=== PATIENT | female | born 1960 | race Caucasian/White ===

== ENCOUNTER → 2021-07-19 13:02 | Outpatient (POV) | payer MEDICARE, OTHER, SELFPAY ==
[2021-07-19 13:25] VITALS: BP 144/78; PULSE 98; RESP 18; TEMP 36.3; O2SAT 98; BMI 36.1
--- NOTE | 2021-07-19 15:11 | HMH.PMCON ---
Assessment and Plan (1) Chronic neck pain Status: Acute Category: Medical Code(s): M54.2 - Cervicalgia; G89.29 - Other chronic pain (2) Right ankle pain Status: Acute Category: Medical Code(s): M25.571 - Pain in right ankle and joints of right foot - Assessment and plan all Dx Assessment and Plan for all problems:: Patient is a pleasant 61-year-old female who presents today with chronic neck pain and status post right ankle replacement. In regards to her neck pain, she says that she has had this for several years now. Denies any precipitating factors. She says that her neck pain radiates to bilateral upper extremities. She was seeing Dr. Wall with [facility] (formerly [facility]3] in [place]. He was prescribing her gabapentin 600 mg 3 times a day and Percocet 10 mg 3 times a day. However, Dr. Wall told the patient that he cannot continue prescribing the Percocet and lieu of possible addiction. He started tapering the patient down to Percocet 10 mg twice a day and completely stopped prescribing the medication. Her last Percocet prescription was in January 2021. Then in January, patient was in [place] for [place], she broke her ankle and needed right ankle surgery. She had to stay in [place] for about 4 months for postop follow-ups and rehab. She has been staying now in [place]. However, she says that she has developed some infection in her right ankle. She was taking antibiotics for it but has stopped taking it. She now has a follow-up with orthopedics here in [place] to see what the next plans are for her right ankle. Patient is here today because she wants us to continue her Percocet prescription. I have discussed with the patient that we cannot continue her Percocet because our clinic focuses more on interventional pain management such as injective therapy, ablation, spinal cord stimulation therapy and intrathecal pain pump therapy. Patient says that her pain is stable with Percocet. She has been taking this medication for years. I provided the patient information on the list of other pain doctors who may possibly continue her medication. I cannot guarantee with the patient that these doctors will continue them. We will follow-up with this patient as needed. If the patient ever wants to come back we can certainly try her on cervical epidural steroid injection and spinal cord stimulation therapy. Patient has been instructed to contact the clinic with any concerns before the next appointment. Dr. Garibay has reviewed this note and agrees with this plan of care. This note was dictated using voice recognition software and make contain errors or omissions. HPI - Data of Consult Patient: new to practice Requesting Physician: ELIO Villaseñor - Consult Narrative Reason for consult: Neck pain, right ankle pain History of present illness: Ms. Ferreira is a 61 year old female who presents today as a new patient. Patient is referred by Dr. Gay. Thank you for the referral CC: ELIO Villaseñor [facility] History I have reviewed the patient's past medical history: Yes Medical History: Reports:: Hyperlipidemia, Hypertension, MRSA Denies:: Cancer, Diabetes Mellitus Type 1, Diabetes Mellitus Type 2 *Have you ever received a pneumonia vaccine?: Yes *Have you received a flu vaccine this season?: Yes Other Medical History: Reports: Anemia Other Surgeries: Yes: Colonoscopy, EGD Amputation: No Fractures: Yes (R ANKLE) - *Social History Smoking Status: Never smoker Alcohol Intake: never *Occupational Status:: retired Housing: house *Travel in the last 8 weeks: None Family Hx:: No significant family history Review of Systems - Review of Systems Review of Systems: General: No recent weight changes, no fever, no sleep disturbances Respiratory: No cough, no shortness of air, no recurring pulmonary infections Cardiovascular/peripheral vascular: No chest pain, no palpitations, no edema, no shortness of breath Gastrointestinal: No new onset incontinence
== END ==
PROVIDERS: Visit Provider Student in an Organized Health Care Education/Training Program
DX: M54.2 Cervicalgia (principal); G89.29 Other chronic pain; M25.571 Pain in right ankle and joints of right foot
CPT/HCPCS: 99202; G0463

== ENCOUNTER 2021-07-24 14:15 | Emergency (ER) | payer MEDICARE, OTHER, SELFPAY ==
[2021-07-24 14:15] VITALS: BP 151/87; PULSE 104; RESP 21; TEMP 36.9; O2SAT 99; BMI 30.1
--- NOTE | 2021-07-24 14:45 | PC.NURSE ---
PATIENT SENT TO ER PER Bill MERIDA APRN FOR FURTHER EVALUATION. REPORT GIVEN TO Lamberto YOUNG RN BY Bill MERIDA APRN
[2021-07-24 14:46] VITALS: BP 166/101; PULSE 112; RESP 18; O2SAT 95
--- NOTE | 2021-07-24 14:49 | HMH.EDUTC ---
[facility] [place] Disposition Clinical Impression: Ankle problem, Hematoma Cellulitis Qualifiers: Site of cellulitis: extremity Site of cellulitis of extremity: lower extremity Laterality: right Qualified Code(s): L03.115 - Cellulitis of right lower limb Disposition: Home, Self-Care Condition on Discharge: Fair Instructions: DI for Laceration Repair, DI for Wound Infection Additional Instructions: follow up Ortho as scheduled, return here for worse Prescriptions: Doxycycline Monohydrate [Doxycycline Harris 100mg Tab] 100 mg PO BID #20 tab Transmission Status: [facility] Referrals: Arnoldo Gay [Primary Care Provider] - Medical Decision Making - Adriano Inquiry Pt receiving controlled substance: No Adriano was queried for this patient: No Vital Signs: 07/24/21 14:15 07/24/21 14:46 07/24/21 14:55 Temperature 98.5 F 98 F Temperature Source Oral Oral Pulse Rate Pulse Rate [Radial] 112 H 112 H Pulse Rate [Right Brachial] 104 H Respiratory Rate 21 18 17 Blood Pressure Blood Pressure [Right Arm] 151/87 H 166/101 H 166/101 H Blood Pressure Mean [Right Arm] 108 122 122 Blood Pressure Source [Right Arm] Automatic Cuff Blood Pressure Position [Right Arm] Sitting 02 Sat by Pulse Oximetry 99 95 99 Oxygen Delivery Method Room Air 07/24/21 15:16 07/24/21 16:02 Temperature 98 F Temperature Source Pulse Rate 100 H Pulse Rate [Radial] 100 H Pulse Rate [Right Brachial] Respiratory Rate 18 18 Blood Pressure 150/95 H Blood Pressure [Right Arm] 146/90 H Blood Pressure Mean [Right Arm] 108 Blood Pressure Source [Right Arm] Blood Pressure Position [Right Arm] 02 Sat by Pulse Oximetry 95 Oxygen Delivery Method - Lab Data Lab Results 07/24/21 14:50: WBC 7.1, RBC 4.07 L, Hgb 10.2 L, Hct 32.8 L, MCV 80.7 L, MCH 25.2 L, MCHC 31.2 L, RDW 16.7, Plt Count 505 H, MPV 8.3, Neut % (Auto) 70.6, Lymph % (Auto) 20.5, Harris % (Auto) 4.4, Eos % (Auto) 3.2, Baso % (Auto) 1.3, Neut # (Auto) 5.0, Lymph # (Auto) 1.5, Harris # (Auto) 0.3, Eos # (Auto) 0.2, Baso # (Auto) 0.1 07/24/21 14:50: Sodium 141, Potassium 4.1, Chloride 105, Carbon Dioxide 28, Anion Gap 12.1, BUN 12, Creatinine 0.80, Estimated Creat Clear 75, Estimated GFR 72, Est GFR ( Amer) 88, Glucose 112 H, Calcium 10.8 H, Total Bilirubin 0.5, AST 26, ALT 14, Alkaline Phosphatase 125, Total Protein 8.5 H, Albumin 4.6, Globulin 3.9 H, Albumin/Globulin Ratio 1.2 07/24/21 14:50: Lactate 1.1 Result diagrams: 07/24/21 14:50 07/24/21 14:50 Orders (Tests/Meds): ED MEDICATIONS Discontinued Medications Generic Name Dose Route Start Last Admin Trade Name Freq PRN Reason Stop Dose Admin Lidocaine/Epinephrine 20 ml 07/24/21 16:01 07/24/21 16:03 Lidocaine 2% W/Epi 1:100,000 20ml Vial IJ 07/24/21 16:02 20 ml ONCE ONE Administration Sodium Chloride 10 ml 07/24/21 14:53 Sodium Chloride 0.9% 10ml Flush Syringe IV 08/23/21 14:52 NEEDED PRN Maintain IV Site ORDERS Category Date Time Status Blood Culture Stat Micro 07/24/21 14:50 Received Medical Decision Narrative: Due to recently dx and treatment for MRSA in ankle after surgery in Dec and concern for spreading and worsening of infection discussed with patient and recommended transfer to the ED for further work up and evaluation and patient agreed Called ED spoke with Prema and patient was moved to room 7 [facility] [facility] HPI - General Stated complaint: wounds Time Seen by Provider: 07/24/21 14:49 Mode of Arrival: Ambulatory Source of Information: Patient Limitations: No Limitations Description of Symptoms (Recalled from Triage Doc. by RN): PATIENT BROUGHT OVER FROM WOUND CLINIC BY STAFF FOR CONCERN OF A HARD, RAISED, RED, WARM AREA TO OUTTER RIGHT ANKLE X 2 DAYS. THERE IS AN OPEN AREA BELOW THAT HAS RECENTLY BEEN TREATED FOR MRSA AND IS CURRENTLY BEING TREATED AT WOUND CLINIC HEENT Symptoms (Recalled from RN notes): No Resp Symptoms (Recalled
[2021-07-24 14:55] VITALS: BP 166/101; PULSE 112; RESP 17; TEMP 36.6; O2SAT 99; BMI 30.1
--- NOTE | 2021-07-24 14:58 | HMH.EDEXTP ---
ED Disposition Clinical Impression: Ankle problem, Hematoma Cellulitis Qualifiers: Site of cellulitis: extremity Site of cellulitis of extremity: lower extremity Laterality: right Qualified Code(s): L03.115 - Cellulitis of right lower limb Disposition: Home, Self-Care Condition on Discharge: Good Instructions: DI for Laceration Repair, DI for Wound Infection Additional Instructions: follow up Ortho as scheduled, return here for worse Prescriptions: Doxycycline Monohydrate [Doxycycline Montrose 100mg Tab] 100 mg PO BID #20 tab Transmission Status: Pending to [facility] Referrals: Arnoldo Gay [Primary Care Provider] - - Critical Care Critical Care Time: No Attestation: On 07/24/21, the high probability of a clinically significant, sudden or life threatening deterioration of the following system(s) required my full and direct attention, intervention and personal management. The time I documented below is in addition to time spent performing reported procedures but includes the following listed in this critical care notation. Medical Decision Making - Medical Records Medical records reviewed: Yes: I reviewed the patient's medical records. - Adriano Inquiry Pt receiving controlled substance: No Vital Signs: 07/24/21 14:15 07/24/21 14:55 Temperature 98.5 F 98 F Temperature Source Oral Oral Pulse Rate [Radial] 112 H Pulse Rate [Right Brachial] 104 H Respiratory Rate 21 17 Blood Pressure [Right Arm] 151/87 H 166/101 H Blood Pressure Mean [Right Arm] 108 122 Blood Pressure Source [Right Arm] Automatic Cuff Blood Pressure Position [Right Arm] Sitting 02 Sat by Pulse Oximetry 99 99 Oxygen Delivery Method Room Air - Lab Data Lab Results 07/24/21 14:50: WBC 7.1, RBC 4.07 L, Hgb 10.2 L, Hct 32.8 L, MCV 80.7 L, MCH 25.2 L, MCHC 31.2 L, RDW 16.7, Plt Count 505 H, MPV 8.3, Neut % (Auto) 70.6, Lymph % (Auto) 20.5, Montrose % (Auto) 4.4, Eos % (Auto) 3.2, Baso % (Auto) 1.3, Neut # (Auto) 5.0, Lymph # (Auto) 1.5, Mont[place] # (Auto) 0.3, Eos # (Auto) 0.2, Baso # (Auto) 0.1 07/24/21 14:50: Sodium 141, Potassium 4.1, Chloride 105, Carbon Dioxide 28, Anion Gap 12.1, BUN 12, Creatinine 0.80, Estimated Creat Clear 75, Estimated GFR 72, Est GFR ( Amer) 88, Glucose 112 H, Calcium 10.8 H, Total Bilirubin 0.5, AST 26, ALT 14, Alkaline Phosphatase 125, Total Protein 8.5 H, Albumin 4.6, Globulin 3.9 H, Albumin/Globulin Ratio 1.2 07/24/21 14:50: Lactate 1.1 Result diagrams: 07/24/21 14:50 07/24/21 14:50 Orders (Tests/Meds): ED MEDICATIONS Generic Name Dose Route Start Last Admin Trade Name Freq PRN Reason Stop Dose Admin Sodium Chloride 10 ml 07/24/21 14:53 Sodium Chloride 0.9% 10ml Flush Syringe IV 08/23/21 14:52 NEEDED PRN Maintain IV Site ORDERS Category Date Time Status Ankle XR -Right minimum 3 Views [XR ankle RT min 3V] Exams 07/24/21 15:22 Taken Stat Blood Culture Stat Micro 07/24/21 14:50 Received Medical Decision Narrative: rt ankle xray by me no acute abn discussed with pt, has ortho f/u scheduled next week ok with plan to rx abx and f/u and return for worse Extremity Problem HPI - General Stated complaint: wounds Time Seen by Provider: 07/24/21 14:49 Mode of Arrival: Ambulatory Source of Information: Patient Limitations: No Limitations Description of Symptoms (Recalled from ER Triage Doc. by RN): PATIENT BROUGHT OVER FROM WOUND CLINIC BY STAFF FOR CONCERN OF A HARD, RAISED, RED, WARM AREA TO OUTTER RIGHT ANKLE X 2 DAYS. THERE IS AN OPEN AREA BELOW THAT HAS RECENTLY BEEN TREATED FOR MRSA AND IS CURRENTLY BEING TREATED AT WOUND CLINIC - History of Present Illness HPI Narrative: sent by for rt ankle wound eval pt reports new area of red/swollen x few days near chronic wound site h/o rt ankle surgery with chronic wound care for months h/o mrsa finished bactrim several weeks ago MD Complaint: extremity pain, extremity swelling Onset (ago): day(s
[2021-07-24 15:10] LABS: Basophils # 0.1 K/mm3 (0-0.2); Basophils % 1.3 % (0.1-2.0); Chloride 105 mmol/L (98-107); Eosinophils # 0.2 K/mm3 (0.0-0.4); Eosinophils % 3.2 % (0.1-12.0); Hematocrit 32.8 % (37.0-47.0); Hemoglobin 10.2 g/dL (12.2-16.2); Lymphocytes # 1.5 K/mm3 (0.7-4.5); Lymphocytes % 20.5 % (10-50); Mean Corpuscular HGB Conc 31.2 g/dL (31.8-35.4); Mean Corpuscular Hemoglobin 25.2 pg (27.0-31.2); Mean Corpuscular Volume 80.7 fl (81-99); Mean Platelet Volume 8.3 fl (7.4-10.4); Monocytes # 0.3 K/mm3 (0.1-1.0); Monocytes % 4.4 % (1.7-9.3); Neutrophils % 70.6 % (37.0-80.0); Platelet Count 505 K/mm3 (142-424); Potassium 4.1 mmoL/L (3.5-5.1); Red Blood Count 4.07 M/mm3 (4.20-5.40); Red Cell Distribution Width 16.7 % (11.5-17.5); Sodium 141 mmol/L (136-145); White Blood Count 7.1 K/mm3 (4.8-10.8)
[2021-07-24 15:13] LABS: Alanine Aminotransferase 14 U/L (12-78); Albumin Level 4.6 g/dl (3.5-5.0); Albumin/Globulin Ratio 1.2 (1.1-1.8); Alkaline Phosphatase 125 U/L (38-126); Anion Gap 12.1 mEq/L (5-15); Aspartate Amino Transferase 26 U/L (14-36); Bilirubin,Total 0.5 mg/dl (0.2-1.3); Blood Urea Nitrogen 12 mg/dl (7-17); Carbon Dioxide 28 mmol/L (22.0-30.0); Creatinine Clearance Estimated 75 mL/min (50-200); Estimated Glomerular Filt Rate 72 ml/min (>60); GFR (African American) 88 ML/MIN (>60); Globulin 3.9 g/dL (1.3-3.2); Total Protein,Serum 8.5 g/dl (6.3-8.2)
[2021-07-24 15:14] LABS: Calcium 10.8 mg/dl (8.4-10.2); Glucose 112 mg/dl (74-100); Lactic Acid 1.1 mmol/L (0.7-2.1)
[2021-07-24 15:16] VITALS: BP 146/90; PULSE 100; RESP 18; O2SAT 95
--- NOTE | 2021-07-24 15:22 | XR_ITS ---
FINAL REPORT CLINICAL HISTORY: post op wound, pain FINDINGS: AP, oblique, and lateral views of the right ankle were obtained. There is no prior exam for comparison. There are changes from ORIF of the medial and lateral malleoli. The hardware are intact. There is no acute fracture. There is deformity from old fracture. The bones are osteopenic without convincing bony destruction to suggest osteomyelitis. The ankle mortise is intact. There is soft tissue edema greatest laterally. There is convincing soft tissue air. IMPRESSION: Cellulitis without radiographic findings of osteomyelitis. Consider bone scan or CT if indicated. Reviewed, Interpreted and Dictated by Julia Hogan MD Transcribed by Abiodun Marie Authenticated by Julia Hogan MD on 07/24/2021 04:32:41 PM [facility]
[2021-07-24 16:02] VITALS: BP 150/95; PULSE 100; RESP 18; TEMP 36.6; O2SAT 98
== END 2021-07-24 16:04 | disposition home or self-care (01) ==
LOC: UTC 14:43 → ER 14:47
PROVIDERS: Emergency Medicine; Emergency Provider Nurse Practitioner; PCP Family Medicine
DX: L03.115 Cellulitis of right lower limb (principal); Z86.14 Personal history of Methicillin resistant Staphylococcus aureus infection; I10 Essential (primary) hypertension; E78.5 Hyperlipidemia, unspecified; D64.9 Anemia, unspecified; Z79.899 Other long term (current) drug therapy
CPT/HCPCS: 10021; 73610; 80053; 83605; 85025; 87040; 96372; 99284

== ENCOUNTER → 2021-08-10 13:34 | Outpatient (CLI) | payer MEDICARE, OTHER, SELFPAY ==
[2021-08-10 15:02] LABS: Basophils # 0.1 K/mm3 (0-0.2); Basophils % 1.4 % (0.1-2.0); Eosinophils # 0.2 K/mm3 (0.0-0.4); Hematocrit 32.1 % (37.0-47.0); Hemoglobin 9.9 g/dL (12.2-16.2); Lymphocytes # 1.6 K/mm3 (0.7-4.5); Lymphocytes % 31.1 % (10-50); Mean Corpuscular HGB Conc 30.8 g/dL (31.8-35.4); Mean Corpuscular Volume 81.2 fl (81-99); Mean Platelet Volume 9.6 fl (7.4-10.4); Monocytes # 0.3 K/mm3 (0.1-1.0); Monocytes % 6.2 % (1.7-9.3); Neutrophils % 57.2 % (37.0-80.0); Platelet Count 367 K/mm3 (142-424); Red Blood Count 3.95 M/mm3 (4.20-5.40); Red Cell Distribution Width 16.8 % (11.5-17.5); White Blood Count 5.2 K/mm3 (4.8-10.8)
[2021-08-10 15:06] LABS: Alanine Aminotransferase 14 U/L (12-78); Albumin Level 4.2 g/dl (3.5-5.0); Albumin/Globulin Ratio 1.1 (1.1-1.8); Alkaline Phosphatase 123 U/L (38-126); Anion Gap 9.6 mEq/L (5-15); Aspartate Amino Transferase 25 U/L (14-36); Bilirubin,Total 0.1 mg/dl (0.2-1.3); Blood Urea Nitrogen 14 mg/dl (7-17); Calcium 9.9 mg/dl (8.4-10.2); Carbon Dioxide 29 mmol/L (22.0-30.0); Chloride 104 mmol/L (98-107); Estimated Glomerular Filt Rate 72 ml/min (>60); GFR (African American) 88 ML/MIN (>60); Globulin 3.7 g/dL (1.3-3.2); Glucose 93 mg/dl (74-100); Potassium 4.6 mmoL/L (3.5-5.1); Sodium 138 mmol/L (136-145); Total Protein,Serum 7.9 g/dl (6.3-8.2)
[2021-08-10 15:11] LABS: C-Reactive Protein 6.8 mg/L (0-4)
[2021-08-10 15:23] LABS: 25-OH Vitamin D, Total 45.2 ng/mL (30-100)
[2021-08-10 16:32] LABS: Erythrocyte Sedimentation Rate 49 mm/hr (0-30)
== END ==
PROVIDERS: PCP Family Medicine; Visit Provider Orthopaedic Surgery
DX: M86.9 Osteomyelitis, unspecified (principal); L03.90 Cellulitis, unspecified; S91.001A Unspecified open wound, right ankle, initial encounter; E55.9 Vitamin D deficiency, unspecified
CPT/HCPCS: 36415; 80053; 82306; 85025; 85651; 86140; 87070; 87077; 87186; 87205

== ENCOUNTER 2021-08-10 14:00 | Outpatient (RCR) | payer MEDICARE, OTHER, SELFPAY | END 2021-08-10 14:05 | disposition home or self-care (01) | LOC: PT 14:00 | PROVIDERS: PCP Family Medicine | DX: L97.511 Non-pressure chronic ulcer of other part of right foot limited to breakdown of skin (principal) | CPT/HCPCS: 87070; 87077; 87186; 87205; 97163; 97164; 97597; 97760 ==

== ENCOUNTER → 2021-08-16 09:03 | Outpatient (CLI) | payer MEDICARE, OTHER, SELFPAY ==
--- NOTE | 2021-08-16 09:22 | CT_ITS ---
FINAL REPORT CLINICAL HISTORY: ankle pain, pt will be having sx to remove hardware COMPARISON: Plain films dated July 24, 2021 FINDINGS: CT RIGHT ANKLE WITH AND WITHOUT CONTRAST Axial CT images were performed through the right ankle with and without contrast. Coronal and sagittal reformatted images were submitted. This study was performed with techniques to keep radiation doses as low as reasonably achievable (ALARA). Individualized dose reduction techniques using automated exposure control or adjustment of mA and/or kV according to the patient's size were employed. FINDINGS: There are postoperative changes of the distal tibia and fibula with a sideplate and multiple screws. There are chronic fractures of the distal tibia and fibula. There is diffuse osteopenia. There are moderate degenerative changes at the distal tibial fibular joint. There are small calcaneal spurs. There is no abnormal contrast enhancement. IMPRESSION: Postoperative changes securing chronic fractures of the distal tibia and fibula. No abnormal contrast enhancement. Reviewed, Interpreted and Dictated by Freddy Baker III, MD Transcribed by Abiodun Marie Authenticated and [facility]
[2021-08-16 09:33] LABS: Calcium 10.4 mg/dl (8.4-10.2)
[2021-08-16 10:01] LABS: 25-OH Vitamin D, Total 40.6 ng/mL (30-100)
== END ==
PROVIDERS: PCP Family Medicine; Visit Provider Orthopaedic Surgery
DX: E55.9 Vitamin D deficiency, unspecified (principal); M86.9 Osteomyelitis, unspecified; M25.571 Pain in right ankle and joints of right foot
CPT/HCPCS: 36415; 73702; 82306; 82310; C9803; Q9967; U0003; U0005

== ENCOUNTER 2021-08-17 09:39 | Inpatient (IN) | payer MEDICARE, OTHER, SELFPAY ==
[2021-08-14 16:25] VITALS: BMI 36.1
[2021-08-17] VITALS (17 sets, daily range): BP systolic 123–158; BP diastolic 77–96; PULSE 87–106; RESP 14–18; TEMP 36.6–43; O2SAT 95–99; BMI 36.7
[2021-08-17 08:55] LABS: Coronavirus 19, PCR Not Detected (NotDetected); Influenza A, PCR Not Detected (NotDetected); Influenza B, PCR Not Detected (NotDetected)
--- NOTE | 2021-08-17 10:14 | HMH.PHAINT ---
MEDICATION RECONCILIATION COMPLETED ON PATIENT USING EXTERNAL FILL HISTORY FROM PHARMACY AND [facility]AN[facility]ER[facility] REPORT. -ASHLIE HAYDEND
--- NOTE | 2021-08-17 13:08 | HMH.ANESCL ---
[facility] Anesthesia Checklist - Patient Identification Patient Identification: Arm Band - Structural Data Admitted From: Home Planned Operative Procedure/s: Right Foot Hardware Removal Consent for Planned Operative Procedure(s) Verified: Yes Verified Documents: Surgical Consent - NPO Status Verified Time NPO: 00:00 - Chart Verification Results Verified: CBC, BMP - Additional verifications Anesthesia Reactions: No Hx Blood Transfusions: Yes Blood Transfusion Reaction: Yes - Airway Assessment C-Spine Mobility Assessed: Yes TMJ Mobility Assessed: Yes Dentition: Partials - Neurological Assessment Level of Consciousness: Awake, Alert, Appropriate - Anesthesia Plan Anesthesia Risk discussed: Yes ASA Class: II Anesthesia Type: General [facility] History I have reviewed the patient's past medical history: Yes Medical History: Reports:: Hyperlipidemia, Hypertension, MRSA Denies:: Cancer, Diabetes Mellitus Type 1, Diabetes Mellitus Type 2, Internal Pacemaker, Seizures *Have you ever received a pneumonia vaccine?: Yes *Have you received a flu vaccine this season?: Yes Other Medical History: Reports: Anemia, Blood Transfusion Reaction Anesthesia experience/problems:: None Other Surgeries: Yes: Colonoscopy, EGD. No: Pacemaker Amputation: No Fractures: Yes (R ANKLE) - *Social History Last grade of school completed: High school graduate Smoking Status: Never smoker Alcohol Intake: never Substance Use Type: denies use *Occupational Status:: retired Housing: house Household Members: none *Travel in the last 8 weeks: None Family Hx:: No significant family history
--- NOTE | 2021-08-17 13:10 | P.PN_ITS ---
[facility] Anesthesia Record Part I Intake, IV Amount: 1,000 Estimated blood loss (mL): 10 Urine output (mL): 0 Blood Pressure: 142/88 SaO2: 97 Pulse Rate: 104 Respiratory Rate: 14 Temperature: 98.7 F Patient is:: Drowsy Stable to PACU at:: 13:03
--- NOTE | 2021-08-17 13:50 | HMH.PHACONS ---
- Pharmacy Consult Date: 08/17/21 Time: 13:50 Referring provider: DR GOVEA Reason for Consult:: VANCOMYCIN DOSING Allergies and ADEs:: Allergies Allergy/AdvReac Type Severity Reaction Status Date / Time No Known Allergies Allergy Verified 08/10/21 15:15 Home Medications:: Home Medications Medication Instructions Recorded Confirmed Type ALPRAZolam [Alprazolam 2mg Tab] 2 mg PO AM 07/19/21 08/17/21 History Cholecalciferol (Vitamin D3) 1,000 unit PO DAILY 07/19/21 08/14/21 History [Vitamin D3 1,000 Unit Cap] Cyanocobalamin (Vitamin B-12) 5,000 mcg PO DAILY 07/19/21 08/14/21 History [Vitamin B12 5mg Tab] amlodipine 5 mg tablet 5 mg PO DAILY tab 08/10/21 08/14/21 History escitalopram oxalate 10 mg tablet 10 mg PO DAILY tab 08/10/21 08/14/21 History fluticasone propionate 50 1 spray NS DAILY g 08/10/21 08/14/21 History mcg/actuation nasal spray,suspension ALPRAZolam [Alprazolam 2mg Tab] 1 mg PO 1300 08/17/21 08/17/21 History ALPRAZolam [Alprazolam 2mg Tab] 2 mg PO HS 08/17/21 08/17/21 History Oxycodone HCl 5 mg PO Q8HP PRN 08/17/21 08/17/21 History Height: 1.55 m Weight: 86.636 kg Laboratory Results:: Laboratory Results - last 24 hr 08/17/21 08:50: SARS-CoV-2 (PCR) Not detected, Influenza A Untype (PCR) Not detected, Influenza Type B (PCR) Not detected Medical History: Reports:: Hyperlipidemia, Hypertension, MRSA Denies:: Cancer, Diabetes Mellitus Type 1, Diabetes Mellitus Type 2, Internal Pacemaker, Seizures Assessment and Plan - Assessment and plan all Dx Assessment and Plan for all problems:: Pharmacokinetic dosing service Objective: Age: 61 yo Serum creatinine: 1 mg/dL Height: 61.0 Inches Weight (kg): 86.636 Diagnosis: POST-SURGICAL PROPHYLAXIS Assessment: IBW (kg): 47.80 Dosing wt(kg): 86.636 Estimated Creatinine clearance (ml/min): 57.5 CRCL method: Cockcroft and Gault using adjusted body weight Drug selected: Vancomycin Loading dose (mg): Vd (liters): 56.3 (factor used: 0.65 L/kg) Neal (hr-1): 0.052 Half life (hrs): 13.33 CLvanco=?? 2.928 L/hr Recommended dose: 1500 mg Interval: 24 hrs Infusion time (hrs): 2.0 Predicted peak (mcg/mL): 35.5 Predicted trough (mcg/mL): 11.31 Total body weight is being used for vancomycin dosing. Recommendations: Give Vancomycin 1500 mg q 24 hrs with an expected Cpeak of 35.5 mcg/ml and an expected Ctrough of 11.31 mcg/ml AUC 0-24 /GAVIN Data: GAVIN 0.5 mcg/mL:?? AUC/GAVIN:? 1024.6 GAVIN 1.0 mcg/mL:?? AUC/GAVIN:? 512.3 --------- GAVIN 1.5 mcg/mL:?? AUC/GAVIN:? 341.5 GAVIN 2.0 mcg/mL:?? AUC/GAVIN:? 256.1 Thank you for the consult.
--- NOTE | 2021-08-17 13:52 | HMH.OPNOTE ---
Date of procedure: 08/17/21 Pre-op Diagnosis:: Right ankle surgical site infection. Post-op Diagnosis:: same Procedure performed:: 41840: Incision and drainage of complex postoperative infection 59284: Removal of deep implant 15262: Antibiotic cement placement 79516: Wound vacuum-assisted closure placement Surgeon:: Kyle Rollins JR, MD Crosscutter(s):: Farzana Ogden PA-C Anesthesia: GETA Estimated blood loss (mL): 30 Clinical Note:: 51-year-old female underwent open reduction internal fixation right ankle fracture by an outside provider, subsequently developed drainage and was treated for period of time with wound care. She presented to clinic last week, had purulent appearing drainage which I sent for culture, ultimately growing methicillin-resistant staph aureus. Patient with her regarding further management including further wound care and antibiotics versus hardware removal. I counseled her that given that she had persistent infection with hardware in place, that it would be difficult to eradicate the infection while leaving the hardware in place. At the time I offered to admit her last week to expedite work-up and intervention, but she said she could not be admitted last Friday. As such, we plan for right ankle hardware removal, wound vacuum-assisted closure, antibiotic cement placement with subsequent admission to the hospital today. She underwent a CT scan in the interim which demonstrated healed fractures. She is amenable with the plan. We discussed the risk and benefits of surgery. Risks included but were not limited to pain, bleeding, infection, damage to adjacent structures, need for further surgery, wound healing complications, loss of limb, . Patient expressed verbal consent and written consent was obtained for the above procedure. Operative findings:: Hardware was explanted. The fracture sites appeared stable upon direct visualization and were stable to stress fluoroscopic examination. Operative note:: Patient was identified in preoperative holding. Operative site was marked in indelible ink. History, physical, consent were reviewed and updated. Patient was surrendered to the anesthesia team, taken to the operative suite, placed supine on a well-padded operative table. Ipsilateral hip bump was placed as was a nonsterile thigh tourniquet. Anesthesia was induced. The operative extremity was prepped and draped in the usual sterile fashion. The operative team donned sterile gowns and gloves and a timeout was called. All in attendance agreed regarding the patient's identity, procedure, operative site. Weight-based dose of antibiotics was given prior to incision. Elevated the right lower extremity, inflated the tourniquet. I made a medial approach to the ankle along her previous incision, dissected through skin and subcutaneous tissue. I had to dissect more proximally but was able to identify the medial button from the tight rope type device, was able to remove this and send it for pathology. I then identified fluoroscopically and visually the 2 cannulated screws to the medial malleolus which I likewise removed and sent for pathology. Irrigated the wound with Irrisept followed by saline, then injected vancomycin impregnated cement along the screw tracks of the medial malleolus. The medial incision with nylon sutures prior to proceeding laterally so as to not contaminate the medial surgical site with tissue from the grossly infected lateral surgical site. I turned my attention laterally, opened her previous lateral incision, ellipsing devitalized skin proximally. There was a more posterior sinus tract that I did not feel I could ellipse and achieve primary closure. I dissected through skin and subcutaneous tissue, identified the plate and screw construct, removed of the lateral button and remaining suture material followed by all screws in the plate. I took a swab specimen deep which I sent for culture. I
--- NOTE | 2021-08-17 14:10 | XR_ITS ---
FINAL REPORT CLINICAL HISTORY: HARDWARE REMOVED .33 fluoro time FINDINGS: Fluoroscopic guidance was provided for the operating services. A single spot film was provided. 33 seconds of fluoroscopy time was utilized. There has been hardware removal. IMPRESSION: 33 seconds of fluoroscopy time. Reviewed, Interpreted and Dictated by Freddy Baker III, MD Transcribed by Abiodun Marie Authenticated and [facility]
--- NOTE | 2021-08-17 14:42 | SUR.OPER ---
1258 Total hardware removed was 1 plate and 9 screws. All hardware was sent to pathology
--- NOTE | 2021-08-17 15:08 | HMH.PTEV ---
Physical Therapy Evaluation Rehab PT IP Evaluation Start: 08/17/21 13:24 Freq: ONCE Status: Active Protocol: Document 08/17/21 14:58 DEAN (Rec: 08/17/21 15:07 DEAN [id number]) Subjective/History History History Patient is a 61 year old female presenting to outpatient PT with reports of R post-surgical foot/ankle pain secondary to hardware removal. Patient had previously had an ORIF after an ankle fracture that eventually resulted in infection. Patient reports that she lives at home alone with 1 step to enter her house . Previously independent with all ADL's. She currently has a wound vac. Patient set up with XL CAM walker today. MD orders indicate TTWB at this time. Subjective Subjective I'm in a lot of pain. Rehab PT IP Eval Objective Appearance Patient Behavior Appropriate,Cooperative Patient Orientation Person,Place,Birthday Difficulty following instructions none Speech Pattern Clear,Appropriate Ambulation Patient Able to Ambulate No Balance Ability to Arise Unable Sitting Balance Steady, safe Dynamic Sitting Balance Ability Normal Transfers Bed Transfer Ability Minimal x 1 (25% assist) Pain Right Foot Pain Intensity 8 ROM RLE PT ROM Status ABN Abnormal ROM Comment recently out of surgery MMT RLE PT MMT ABN Abnormal MMT Grade NT secondary to orthopedic precautions. Rehab PT IP prob,goals,plan Problems Date of Evaluation: 08/17/21 PT IP Problems Bed Mobility,Transfers,Gait, Balance,Self care,Safety Rehab Potential Rehab Potential Good Equipment Needs Assistive Devices Rolling / Wheeled Walker Plan PT Intervention Plan Bed Mobility,Transfers,Gait, Balance,Self care,Safety, Therapeutic Exercise PT Plan Frequency BID Duration LOS Discharge Goals Bed Transfer Ability Supervision/Stand by Sit to Stand Chair Transfer Ability Supervision/Stand by Ambulation Assistive Device Rolling Walker Ambulation Dist
--- NOTE | 2021-08-17 16:25 | CARE MANAGER ---
CM has worked on trying to set up IV antibiotics and HH r/t infusions and wound vac. this afternoon once discovering patient was being admitted with needs. We are not able to find HH at this time. Will discuss SNF placement options on Friday. We will notify Dr. Rollins of these issues and the need for patient to stay until Friday, which is what he apparently told the patient.
--- NOTE | 2021-08-17 18:03 | HMH.HP ---
*Admission Date: 08/17/21 *Chief complaint: Admitted for orthopedic surgery; infected hardware *History of present illness: Ms. Ferreira is a 61 y.o female with history of ankle fracture after she fell down some stairs and and fractured/dislocated her ankle in January 2021. She had surgery on February 17, [address] [facility] in [place]. She underwent open reduction internal fixation right ankle fracture by an outside provider, subsequently developed drainage and was treated for period of time with wound care. She recent presented to Ortho clinic at [facility] with purulent appearing drainage which was sent for culture, ultimately growing methicillin-resistant staph aureus. Decision made to remove hardware and pursue extended course of IV Abx. She was admtted today for removal of hardware. This afternoon hardware was explanted. The fracture sites appeared stable upon direct visualization and were stable to stress fluoroscopic examination per Ortho documentation. Medicine consulted to assist in co-management of chronic conditions, Abx management, and follow-up plans. On evaluation, she is s/p surgery. Pain prominent. Wound vac in place with sero-sanguinous drainage. Denies any CP, MARTINES, SOA, N/V/D, constipation, or fever. [facility] History I have reviewed the patient's past medical history: Yes Medical History: Reports:: Hyperlipidemia, Hypertension, MRSA Denies:: Cancer, Diabetes Mellitus Type 1, Diabetes Mellitus Type 2, Internal Pacemaker, Seizures *Have you ever received a pneumonia vaccine?: No *Have you received a flu vaccine this season?: Yes Other Medical History: Reports: Anemia, Blood Transfusion Reaction Anesthesia experience/problems:: None Other Surgeries: Yes: Colonoscopy, EGD. No: Pacemaker Amputation: No Fractures: Yes (R ANKLE) - *Social History Last grade of school completed: High school graduate Smoking Status: Never smoker Alcohol Intake: never Substance Use Type: denies use *Occupational Status:: disabled Housing: house Household Members: none *Travel in the last 8 weeks: None Family Hx:: Mental illness Review of Systems - Review of Systems Review of systems:: pertinent systems reviewed and negative unless documented below (14 point review of systems performed, pertinent positives and negatives as per HPI) Meds Home Medications Medication Instructions Recorded Confirmed Type ALPRAZolam [Alprazolam 2mg Tab] 2 mg PO AM 07/19/21 08/17/21 History Cholecalciferol (Vitamin D3) 1,000 unit PO DAILY 07/19/21 08/14/21 History [Vitamin D3 1,000 Unit Cap] Cyanocobalamin (Vitamin B-12) 5,000 mcg PO DAILY 07/19/21 08/14/21 History [Vitamin B12 5mg Tab] amlodipine 5 mg tablet 5 mg PO DAILY tab 08/10/21 08/14/21 History escitalopram oxalate 10 mg tablet 10 mg PO DAILY tab 08/10/21 08/14/21 History fluticasone propionate 50 1 spray NS DAILY g 08/10/21 08/14/21 History mcg/actuation nasal spray,suspension ALPRAZolam [Alprazolam 2mg Tab] 1 mg PO 1300 08/17/21 08/17/21 History ALPRAZolam [Alprazolam 2mg Tab] 2 mg PO HS 08/17/21 08/17/21 History Oxycodone HCl 5 mg PO Q8HP PRN 08/17/21 08/17/21 History Allergies Allergy/AdvReac Type Severity Reaction Status Date / Time No Known Allergies Allergy Verified 08/10/21 15:15 Exam Vital signs and Labs for Last 24 Hours: Temp Pulse Resp BP Pulse Ox 98.5 F 96 H 16 140/96 H 97 08/17/21 13:33 08/17/21 13:33 08/17/21 13:33 08/17/21 13:33 08/17/21 13:33 Laboratory Results - last 24 hr 08/17/21 08:50: SARS-CoV-2 (PCR) Not detected, Influenza A Untype (PCR) Not detected, Influenza Type B (PCR) Not detected I & O for Last 24 hours: Intake & Output 08/14/21 08/15/21 08/16/21 08/17/21 23:59 23:59 23:59 23:59 Intake Total 1000 / 1000 Balance 1000 / 1000 Weight 86.636 kg 88.224 kg - Constitutional no acute distress - *Routine HEENT Exam Head: Present: normocephalic Eye: Present: EOMI, PERRL ENT: Present: mucous membranes moist
--- NOTE | 2021-08-18 03:50 | HMH.ORTHPN ---
Subjective Date: 08/18/21 Time: 03:50 Principal diagnosis: Right surgical site infection with suspected osteomyelitis. Interval history: Status post right ankle debridement, irrigation, hardware removal, antibiotic cement injection, wound vacuum-assisted closure earlier August 18, 2021. She feels well. Pain is tolerable. PN: Obj Ex Vital signs: Temp Pulse Resp BP Pulse Ox 98.4 F 91 H 18 137/81 98 08/17/21 20:00 08/17/21 20:00 08/17/21 20:00 08/17/21 20:00 08/17/21 20:00 - Constitutional no acute distress - Routine HEENT Exam Head: Present: normocephalic, atraumatic Eye: Present: EOMI - Routine Neck Exam Present: supple - Routine Respiratory Exam Absent: accessory muscle use, respiratory distress - Routine Cardiovascular Exam Present: RRR - Detailed Lower Extremity Exam Lower leg: Right normal inspection (Right lower extremity dressing clean, dry, intact. Wound vacuum assisted closure device with good seal, serosanguineous output. Intact EHL, FHL, tibialis anterior, gastroc/soleus. Palpable DP/SP/tibial nerve distribution.) Progress Note: A&P (1) Infected hardware in right leg Status: Acute (2) Essential hypertension Status: Chronic (3) Anxiety Status: Chronic (4) Chronic pain Status: Chronic (5) MRSA (methicillin resistant staph aureus) culture positive Status: Acute (6) Cellulitis Status: Acute Assessment and Plan for All Diagnoses:: 61-year-old female status post right ankle debridement, irrigation, hardware removal, antibiotic cement injection with wound vacuum-assisted closure August 17, 2021. Plan to follow cultures, anticipate MRSA given previous cultures. Plan for PICC line placement, anticipate outpatient antibiotics 15 mg/kg. I discussed this with Dr. Celso Carlisle who agreed to follow-up with her this week. Every 72 hour wound vacuum-assisted closure change. Protected weightbearing in boot. Appreciate medical management per Dr. Almaguer / April. Will follow.
[2021-08-18 04:00] VITALS: BP 141/76; PULSE 89; RESP 18; TEMP 36.4; O2SAT 97
[2021-08-18 05:00] VITALS: BMI 36.7
[2021-08-18 07:52] LABS: Basophils % 0.3 % (0.1-2.0); Eosinophils % 0.1 % (0.1-12.0); Hematocrit 27.5 % (37.0-47.0); Hemoglobin 8.8 g/dL (12.2-16.2); Lymphocytes % 10.2 % (10-50); Mean Corpuscular HGB Conc 31.9 g/dL (31.8-35.4); Mean Corpuscular Hemoglobin 25.8 pg (27.0-31.2); Mean Corpuscular Volume 80.9 fl (81-99); Mean Platelet Volume 9.6 fl (7.4-10.4); Monocytes # 0.4 K/mm3 (0.1-1.0); Monocytes % 4.2 % (1.7-9.3); Neutrophils # 7.9 K/mm3 (1.8-7.8); Neutrophils % 85.1 % (37.0-80.0); Platelet Count 334 K/mm3 (142-424); Red Cell Distribution Width 17.3 % (11.5-17.5); White Blood Count 9.3 K/mm3 (4.8-10.8)
[2021-08-18 07:54] LABS: MANUAL DIFFERENTIAL MANUAL DIFFERENTIAL (MANUAL DIFF)
[2021-08-18 07:55] LABS: Chloride 105 mmol/L (98-107); Potassium 4.5 mmoL/L (3.5-5.1); Sodium 137 mmol/L (136-145)
[2021-08-18 07:57] LABS: Blood Urea Nitrogen 18 mg/dl (7-17); Creatinine Clearance Estimated 80 mL/min (50-200); Estimated Glomerular Filt Rate 63 ml/min (>60); GFR (African American) 77 ML/MIN (>60)
[2021-08-18 07:58] LABS: Alanine Aminotransferase 11 U/L (12-78); Albumin Level 3.8 g/dl (3.5-5.0); Albumin/Globulin Ratio 1.2 (1.1-1.8); Alkaline Phosphatase 99 U/L (38-126); Anion Gap 7.5 mEq/L (5-15); Aspartate Amino Transferase 21 U/L (14-36); Bilirubin,Total 0.4 mg/dl (0.2-1.3); Calcium 9.7 mg/dl (8.4-10.2); Carbon Dioxide 29 mmol/L (22.0-30.0); Globulin 3.2 g/dL (1.3-3.2); Glucose 124 mg/dl (74-100); Magnesium 2.2 mg/dl (1.6-2.3)
--- NOTE | 2021-08-18 08:24 | P.CONPHA_ITS ---
[facility] Pharmacy VTE Monitoring - Patient Demographics Admission date: 08/18/21 Report Date: 08/18/21 Time: 08:24 Allergies/Adverse Reactions: Patient Allergies No Known Allergies Allergy (Verified 08/10/21 15:15) Height: 1.55 m Weight: 88.225 kg Patient Problems: Current Active Problems Cellulitis (Acute) Essential hypertension (Chronic) Infected hardware in right leg (Acute) Anxiety (Chronic) Chronic pain (Chronic) MRSA (methicillin resistant staph aureus) culture positive (Acute) - VTE Risk Labs: VTE Related Lab Results Hgb 8.8 g/dL (12.2-16.2) L 08/18/21 06:55 Hct 27.5 % (37.0-47.0) L 08/18/21 06:55 Plt Count 334 K/mm3 (142-424) 08/18/21 06:55 BUN 18 mg/dl (7-17) H 08/18/21 06:55 Creatinine 0.90 mg/dl (0.52-1.04) 08/18/21 06:55 Estimated Creat Clear 80 mL/min (50-200) 08/18/21 06:55 Clinical Trial Participant: No - Prophylaxis VTE Prophylaxis Ordered?: Yes Types of VTE Prophylaxis: IPCS Knee High (POST OP)
--- NOTE | 2021-08-18 08:28 | P.PN_ITS ---
Internal Medicine - PN: Subj *Date: 08/18/21 *Time: 08:28 Interval history: Patient did well overnight, has some postoperative pain. No other plaints. Does wish to have some more substantial food beside clear liquids. Exam Vital signs and Labs for Last 24 Hours: Temp Pulse Resp BP Pulse Ox 97.6 F 89 18 141/76 H 97 08/18/21 04:00 08/18/21 04:00 08/18/21 04:00 08/18/21 04:00 08/18/21 04:00 Laboratory Results - last 24 hr 08/17/21 08:50: SARS-CoV-2 (PCR) Not detected, Influenza A Untype (PCR) Not detected, Influenza Type B (PCR) Not detected 08/18/21 06:55: WBC 9.3, RBC 3.40 L, Hgb 8.8 L, Hct 27.5 L, MCV 80.9 L, MCH 25.8 L, MCHC 31.9, RDW 17.3, Plt Count 334, MPV 9.6, Neut % (Auto) 85.1 H, Lymph % (Auto) 10.2, [place] % (Auto) 4.2, Eos % (Auto) 0.1, Baso % (Auto) 0.3, Neut # (Auto) 7.9 H, Lymph # (Auto) 1.0, [place] # (Auto) 0.4, Eos # (Auto) 0.0, Baso # (Auto) 0.0 08/18/21 06:55: Sodium 137, Potassium 4.5, Chloride 105, Carbon Dioxide 29, Anion Gap 7.5, BUN 18 H, Creatinine 0.90, Estimated Creat Clear 80, Estimated GFR 63, Est GFR ( Amer) 77, Glucose 124 H, Calcium 9.7, Magnesium 2.2, Total Bilirubin 0.4, AST 21, ALT 11 L, Alkaline Phosphatase 99, Total Protein 7.0, Albumin 3.8, Globulin 3.2, Albumin/Globulin Ratio 1.2 I & O for Last 24 hours: Intake & Output 08/15/21 08/16/21 08/17/21 08/18/21 11:59 11:59 11:59 11:59 Intake Total 1449 / 1449 Output Total 400 / 400 Balance 1049 / 1049 Weight 191 lb 194 lb 8.045 oz Microbiology Reports for the Last 24 Hours: Microbiology 08/17/21 12:15 Ankle,Right Gram Stain - Final 08/17/21 12:15 Ankle,Right Wound Culture - Preliminary 08/17/21 12:10 Ankle,Right Gram Stain - Final Narrative: Patient is awake, alert, pleasant. Oriented x3. Orthopedic progress notes reviewed. Lungs clear anteriorly, heart rate regular, abdomen soft. No distal edema. Right ankle wrapped in surgical bandage which is clean and dry and intact. Assessment and Plan (1) Infected hardware in right leg Status: Acute Category: Medical Code(s): T84.7XXA - Infection and inf lammatory reaction due to other internal orthopedic prosthetic devices, implants and grafts, initial encounter (2) Essential hypertension Status: Chronic Category: Medical Code(s): I10 - Essential (primary) hypertension (3) Anxiety Status: Chronic Category: Medical Code(s): F41.9 - Anxiety disorder, unspecified (4) Chronic pain Status: Chronic Category: Medical Code(s): G89.29 - Other chronic pain (5) MRSA (methicillin resistant staph aureus) culture positive Status: Acute Category: Medical Code(s): Z22.322 - Carrier or suspected carrier of Methicillin resistant Staphylococcus aureus (6) Cellulitis Status: Acute Qualifiers: Site of cellulitis: extremity Site of cellulitis of extremity: lower extremity Laterality: right Qualified Code(s): L03.115 - Cellulitis of right lower limb Category: Medical Code(s): L03.90 - Cellulitis, unspecified - Assessment and plan all Dx Assessment and Plan for all problems:: Continue vancomycin. Try to obtain PICC line access. Advance diet. Watch renal function tomorrow.
[2021-08-18 08:41] VITALS: BP 127/77; PULSE 79; RESP 17; TEMP 36.4; O2SAT 99
--- NOTE | 2021-08-18 10:57 | XR_ITS ---
PROCEDURE INFORMATION: Exam: XR Chest Exam date and time: 08/18/2021 11:09 AM Age: 61 years old Clinical indication: Device placement; Picc; Additional info: Picc line placement TECHNIQUE: Imaging protocol: Radiologic exam of the chest. Views: 1 view. COMPARISON: No relevant prior studies available. FINDINGS: Tubes, catheters and devices: The PICC line is superimposed upon the bony thorax limiting interpretation. Breast shadows also superimposed upon this region. The right heart border is obscured. The tip of the PICC line is approximately at the level of the mid superior vena cava. Lungs: Unremarkable. No consolidation. Pleural spaces: Unremarkable. No pleural effusion. No pneumothorax. Heart/Mediastinum: Unremarkable. No cardiomegaly. Bones/joints: Unremarkable. IMPRESSION: Suboptimal visualization of the PICC line. Tip approximately at the level of the mid superior vena cava.
[2021-08-18 14:53] LABS: Hypochromasia 1+; Lymphocytes % 13 % (10-50); Monocytes % 11 % (2-9); Neutrophils % 76 % (42-76); Platelet Estimate Normal; Total Cells Counted 100
[2021-08-18 14:54] LABS: Anisocytosis 1+; Stomatocytes 1+
[2021-08-18 15:18] VITALS: BP 136/81; PULSE 80; RESP 16; TEMP 36.3; O2SAT 99
--- NOTE | 2021-08-18 16:46 | PC.NURSE ---
pt has done well this shift. VSS. pt complained of pain X1. pt has slept most of shift. PICC placed in left upper arm, CXR confirmed satisfactory placement. pt has no complaints at this time .
[2021-08-18 20:00] VITALS: BP 159/83; PULSE 88; RESP 17; TEMP 36.6; O2SAT 95
--- NOTE | 2021-08-19 02:23 | P.PN_ITS ---
Subjective Date: 08/19/21 Time: 02:23 Principal diagnosis: Right surgical site infection with suspected osteomyelitis. Interval history: Tolerable pain. PICC line placed. No adverse events. PN: Obj Ex Vital signs: Temp Pulse Resp BP Pulse Ox 97.9 F 88 17 159/83 H 95 08/18/21 20:00 08/18/21 20:00 08/18/21 20:00 08/18/21 20:00 08/18/21 20:00 - Constitutional no acute distress - Routine HEENT Exam Head: Present: normocephalic, atraumatic Eye: Present: EOMI - Routine Neck Exam Present: supple - Routine Respiratory Exam Absent: accessory muscle use, respiratory distress - Routine Cardiovascular Exam Present: RRR - Routine Abdominal Exam Absent: distended - Detailed Lower Extremity Exam Lower leg: Left normal inspection (Right normal inspection (Right lower extrem ity dressing clean, dry, intact. Wound vacuum assisted closure device with good seal, serosanguineous output. Intact EHL, FHL, tibialis anterior, gastroc/soleus. Palpable DP/SP/tibial nerve distribution.) Progress Note: A&P (1) Infected hardware in right leg Status: Acute (2) Essential hypertension Status: Chronic (3) Anxiety Status: Chronic (4) Chronic pain Status: Chronic (5) MRSA (methicillin resistant staph aureus) culture positive Status: Acute (6) Cellulitis Status: Acute Assessment and Plan for All Diagnoses:: 61-year-old female status post right ankle debridement, irrigation, hardware removal, antibiotic cement injection with wound vacuum-assisted closure August 17, 2021. Plan to follow cultures, anticipate MRSA given previous cultures. PICC line placed. Anticipate outpatient vancomycin 15 mg/kg. I discussed this with Dr. Celso Carlisle who agreed to follow-up with her this week. Every 72 hour wound vacuum-assisted closure change. Protected weightbearing in boot. Appreciate medical management per Dr. Almaguer / April. Will follow.
[2021-08-19 04:00] VITALS: BP 166/89; PULSE 83; RESP 18; TEMP 36.7; O2SAT 94
[2021-08-19 04:54] VITALS: BMI 36.8
--- NOTE | 2021-08-19 05:13 | PC.NURSE ---
Pt has slept majority of my shift. No acute changes. Pt has cast to RLE, c/d/i w/ wound vac present. R leg elevated on pillows. IV infusing per order. PICC line to L arm noted - susan c/d/i. Medicated per MAR for pain once this shift. No other complaints or needs voiced at this time. Offered to help pt reposition, pt states she is ok. Call light in reach.
[2021-08-19 06:52] VITALS: BMI 36.6
--- NOTE | 2021-08-19 07:52 | HMH.ACPN2 ---
Internal Medicine - PN: Subj *Date: 08/19/21 *Time: 07:52 Interval history: Patient is resting comfortably. Somewhat flat affect but conversant and oriented. Reports that she has complaint of pain but pain medicine is effective. PICC line was placed without complication yesterday Exam Vital signs and Labs for Last 24 Hours: Temp Pulse Resp BP Pulse Ox 98.1 F 83 18 166/89 H 94 L 08/19/21 04:00 08/19/21 04:00 08/19/21 04:00 08/19/21 04:00 08/19/21 04:00 Laboratory Results - last 24 hr 08/18/21 06:55: WBC 9.3, RBC 3.40 L, Hgb 8.8 L, Hct 27.5 L, MCV 80.9 L, MCH 25.8 L, MCHC 31.9, RDW 17.3, Plt Count 334, MPV 9.6, Neut % (Auto) 85.1 H, Lymph % (Auto) 10.2, Moore % (Auto) 4.2, Eos % (Auto) 0.1, Baso % (Auto) 0.3, Neut # (Auto) 7.9 H, Lymph # (Auto) 1.0, Moore # (Auto) 0.4, Eos # (Auto) 0.0, Baso # (Auto) 0.0, Total Counted 100, Neutrophils % (Manual) 76, Lymphocytes % (Manual) 13, Monocytes % (Manual) 11 H, Platelet Estimate Normal, Hypochromasia 1+, Anisocytosis 1+, Stomatocytes 1+ 08/18/21 06:55: Sodium 137, Potassium 4.5, Chloride 105, Carbon Dioxide 29, Anion Gap 7.5, BUN 18 H, Creatinine 0.90, Estimated Creat Clear 80, Estimated GFR 63, Est GFR ( Amer) 77, Glucose 124 H, Calcium 9.7, Magnesium 2.2, Total Bilirubin 0.4, AST 21, ALT 11 L, Alkaline Phosphatase 99, Total Protein 7.0, Albumin 3.8, Globulin 3.2, Albumin/Globulin Ratio 1.2 I & O for Last 24 hours: Intake & Output 08/16/21 08/17/21 08/18/21 08/19/21 11:59 11:59 11:59 11:59 Intake Total 1449 / 1449 3127 / 3127 Output Total 400 / 400 1250 / 1250 Balance 1049 / 1049 1877 / 1877 Weight 194 lb 8.045 oz 194 lb 0.108 oz Microbiology Reports for the Last 24 Hours: Microbiology 08/17/21 12:10 Ankle,Right Gram Stain - Final 08/17/21 12:10 Ankle,Right Wound Culture - Preliminary NO GROWTH AFTER 24 HOURS 08/17/21 12:15 Ankle,Right Gram Stain - Final 08/17/21 12:15 Ankle,Right Wound Culture - Preliminary Narrative: PICC line in good position. Patient is alert and oriented. Anterior lung rhoades clear, heart rate regular. Abdomen soft. Right extremity exam per Ortho-note appreciated. Continue current plan. Assessment and Plan (1) Infected hardware in right leg Status: Acute Category: Medical Code(s): T84.7XXA - Infection and inflammatory reaction due to other internal orthopedic prosthetic devices, implants and grafts, initial encounter (2) Essential hypertension Status: Chronic Category: Medical Code(s): I10 - Essential (primary) hypertension (3) Anxiety Status: Chronic Category: Medical Code(s): F41.9 - Anxiety disorder, unspecified (4) Chronic pain Status: Chronic Category: Medical Code(s): G89.29 - Other chronic pain (5) MRSA (methicillin resistant staph aureus) culture positive Status: Acute Category: Medical Code(s): Z22.322 - Carrier or suspected carrier of Methicillin resistant Staphylococcus aureus (6) Cellulitis Status: Acute Qualifiers: Site of cellulitis: extremity Site of cellulitis of extremity: lower extremity Laterality: right Qualified Code(s): L03.115 - Cellulitis of right lower limb Category: Medical Code(s): L03.90 - Cellulitis, unspecified - Assessment and plan all Dx Assessment and Plan for all problems:: Tolerating Vanco well. Check renal function tomorrow. Pharmacy to adjust dose as needed. Probable discharge tomorrow depending on care management outcome for home health care.
[2021-08-19 08:00] VITALS: BP 125/64; PULSE 89; RESP 17; TEMP 36.9; O2SAT 96
[2021-08-19 08:52] LABS: Chloride 103 mmol/L (98-107)
[2021-08-19 08:53] LABS: Sodium 136 mmol/L (136-145)
[2021-08-19 08:55] LABS: Blood Urea Nitrogen 20 mg/dl (7-17); Creatinine Clearance Estimated 80 mL/min (50-200); Estimated Glomerular Filt Rate 72 ml/min (>60); GFR (African American) 88 ML/MIN (>60)
[2021-08-19 08:56] LABS: Calcium 9.3 mg/dl (8.4-10.2); Carbon Dioxide 32 mmol/L (22.0-30.0); Glucose 98 mg/dl (74-100)
--- NOTE | 2021-08-19 10:57 | PC.NURSE ---
vanc trough pulled from picc line and sent to lab at this time
--- NOTE | 2021-08-19 13:05 | HMH.PHACONS ---
- Pharmacy Consult Date: 08/19/21 Time: 13:06 Referring provider: CHAMP Reason for Consult:: VANCOMYCIN THERAPY MANAGEMENT Allergies and ADEs:: Allergies Allergy/AdvReac Type Severity Reaction Status Date / Time No Known Allergies Allergy Verified 08/10/21 15:15 Home Medications:: Home Medications Medication Instructions Recorded Confirmed Type ALPRAZolam [Alprazolam 2mg Tab] 2 mg PO AM 07/19/21 08/17/21 History Cholecalciferol (Vitamin D3) 1,000 unit PO DAILY 07/19/21 08/14/21 History [Vitamin D3 1,000 Unit Cap] Cyanocobalamin (Vitamin B-12) 5,000 mcg PO DAILY 07/19/21 08/14/21 History [Vitamin B12 5mg Tab] amlodipine 5 mg tablet 5 mg PO DAILY tab 08/10/21 08/14/21 History escitalopram oxalate 10 mg tablet 10 mg PO DAILY tab 08/10/21 08/14/21 History fluticasone propionate 50 1 spray NS DAILY g 08/10/21 08/14/21 History mcg/actuation nasal spray,suspension ALPRAZolam [Alprazolam 2mg Tab] 1 mg PO 1300 08/17/21 08/17/21 History ALPRAZolam [Alprazolam 2mg Tab] 2 mg PO HS 08/17/21 08/17/21 History Oxycodone HCl 5 mg PO Q8HP PRN 08/17/21 08/17/21 History Height: 1.55 m Weight: 88 kg Laboratory Results:: Laboratory Results - last 24 hr 08/18/21 06:55: Total Counted 100, Neutrophils % (Manual) 76, Lymphocytes % (Manual) 13, Monocytes % (Manual) 11 H, Platelet Estimate Normal, Hypochromasia 1+, Anisocytosis 1+, Stomatocytes 1+ 08/19/21 07:12: Sodium 136, Potassium 4.0, Chloride 103, Carbon Dioxide 32 H, Anion Gap 5.0, BUN 20 H, Creatinine 0.80, Estimated Creat Clear 80, Estimated GFR 72, Est GFR ( Amer) 88, Glucose 98, Calcium 9.3 08/19/21 10:57: Vancomycin Trough 10.0 Medical History: Reports:: Hyperlipidemia, Hypertension, MRSA Denies:: Cancer, Diabetes Mellitus Type 1, Diabetes Mellitus Type 2, Internal Pacemaker, Seizures Assessment and Plan (1) Infected hardware in right leg Status: Acute Category: Medical Code(s): T84.7XXA - Infection and inflammatory reaction due to other internal orthopedic prosthetic devices, implants and grafts, initial encounter (2) Essential hypertension Status: Chronic Category: Medical Code(s): I10 - Essential (primary) hypertension (3) Anxiety Status: Chronic Category: Medical Code(s): F41.9 - Anxiety disorder, unspecified (4) Chronic pain Status: Chronic Category: Medical Code(s): G89.29 - Other chronic pain (5) MRSA (methicillin resistant staph aureus) culture positive Status: Acute Category: Medical Code(s): Z22.322 - Carrier or suspected carrier of Methicillin resistant Staphylococcus aureus (6) Cellulitis Status: Acute Qualifiers: Site of cellulitis: extremity Site of cellulitis of extremity: lower extremity Laterality: right Qualified Code(s): L03.115 - Cellulitis of right lower limb Category: Medical Code(s): L03.90 - Cellulitis, unspecified - Assessment and plan all Dx Assessment and Plan for all problems:: BASED ON TROUGH = 10 DRAWN ON 08/19/21, WILL INCREASE DOSE TO 1750MG (~20MG/KG) EVERY 12 HOURS TO ACHIEVE HIGHER TROUGHS. PHARMACY WILL CONTINUE TO FOLLOW DAILY
[2021-08-19 15:14] VITALS: BP 141/83; PULSE 83; RESP 18; TEMP 36.5; O2SAT 96
--- NOTE | 2021-08-19 18:23 | PC.NURSE ---
Pt has slept majority of this shift. Pt c/o RLE pain x1 and was medicated per MAY. Pt has refused to get out of bed this shift and has refused being turned and repositioned. Purewick remains in place. Urine clear and dark yellow. Pt is on RA. o2 sats >90%. PICC line dressing change this shift, pt tolerated well. Dressing on rt ankle remains CDI. Wound vac collecting small amount of serosang drainage. No leaks apparent, wound vac working appropriately. No other acute changes or complaints, will monitor.
[2021-08-19 20:00] VITALS: BP 136/79; PULSE 88; RESP 16; TEMP 36.5; O2SAT 92
--- NOTE | 2021-08-20 03:57 | PC.NURSE ---
No changes since previous assessment. Pt has slept majority of my shift. Cast to RLE c/d/i, wound vac present and working. Medicating per MAR for pain. PICC to L upper arm - drsg c/d/i. IV infusing per order. Call light in reach. No needs voiced at this time.
[2021-08-20 04:00] VITALS: BP 163/97; PULSE 89; RESP 16; TEMP 36.4; O2SAT 92
[2021-08-20 05:00] VITALS: BMI 36.6
[2021-08-20 06:51] LABS: Basophils # 0.1 K/mm3 (0-0.2); Basophils % 1.2 % (0.1-2.0); Eosinophils # 0.3 K/mm3 (0.0-0.4); Eosinophils % 5.2 % (0.1-12.0); Hematocrit 25.9 % (37.0-47.0); Hemoglobin 8.3 g/dL (12.2-16.2); Lymphocytes # 1.4 K/mm3 (0.7-4.5); Lymphocytes % 22.2 % (10-50); Mean Corpuscular Hemoglobin 25.6 pg (27.0-31.2); Mean Platelet Volume 8.8 fl (7.4-10.4); Monocytes # 0.4 K/mm3 (0.1-1.0); Monocytes % 6.4 % (1.7-9.3); Platelet Count 287 K/mm3 (142-424); Red Blood Count 3.24 M/mm3 (4.20-5.40); Red Cell Distribution Width 17.5 % (11.5-17.5); White Blood Count 6.1 K/mm3 (4.8-10.8)
[2021-08-20 06:56] LABS: Chloride 103 mmol/L (98-107); Potassium 3.8 mmoL/L (3.5-5.1); Sodium 136 mmol/L (136-145)
[2021-08-20 06:59] LABS: Blood Urea Nitrogen 16 mg/dl (7-17); Creatinine Clearance Estimated 80 mL/min (50-200); Estimated Glomerular Filt Rate 72 ml/min (>60); GFR (African American) 88 ML/MIN (>60)
[2021-08-20 07:00] LABS: Anion Gap 4.8 mEq/L (5-15); Calcium 9.3 mg/dl (8.4-10.2); Carbon Dioxide 32 mmol/L (22.0-30.0); Glucose 95 mg/dl (74-100)
[2021-08-20 08:00] VITALS: BP 170/85; PULSE 84; RESP 18; TEMP 36.7; O2SAT 94
[2021-08-20 08:29] VITALS: BP 154/94; PULSE 97; TEMP 36.9
--- NOTE | 2021-08-20 08:29 | P.PN_ITS ---
[facility] Anesthesia Record Part II Discharge Time: 13:23 Destination: floor PACU nurse assessment reviewed?: Yes Patient Condition:: Good Anesthesia Complications:: None Swallowing reflex intact?: Yes Cyanosis?: No Blood Pressure: 154/94 Pulse Rate: 97 Temperature: 98.5 F Mental Status: Alert & Oriented Pain level:: 0 Nausea and/or vomitting:: None Intake, IV Amount: 1,000
--- NOTE | 2021-08-20 12:45 | PC.NURSE ---
Called and spoke with Deirdre in the surgical suite to make Dr. Rollins aware of MRSA positivefor the r ankle wound cx.
--- NOTE | 2021-08-20 13:37 | P.CONPHA_ITS ---
- Pharmacy Consult Date: 08/20/21 Time: 13:37 Referring provider: DR. GOVEA Reason for Consult:: VANCOMYCIN DOSE CHANGE Allergies and ADEs:: Allergies Allergy/AdvReac Type Severity Reaction Status Date / Time No Known Allergies Allergy Verified 08/10/21 15:15 Home Medications:: Home Medications Medication Instructions Recorded Confirmed Type ALPRAZolam [Alprazolam 2mg Tab] 2 mg PO AM 07/19/21 08/17/21 History Cholecalciferol (Vitamin D3) 1,000 unit PO DAILY 07/19/21 08/14/21 History [Vitamin D3 1,000 Unit Cap] Cyanocobalamin (Vitamin B-12) 5,000 mcg PO DAILY 07/19/21 08/14/21 History [Vitamin B12 5mg Tab] amlodipine 5 mg tablet 5 mg PO DAILY tab 08/10/21 08/14/21 History escitalopram oxalate 10 mg tablet 10 mg PO DAILY tab 08/10/21 08/14/21 History fluticasone propionate 50 1 spray NS DAILY g 08/10/21 08/14/21 History mcg/actuation nasal spray,suspension ALPRAZolam [Alprazolam 2mg Tab] 1 mg PO 1300 08/17/21 08/17/21 History ALPRAZolam [Alprazolam 2mg Tab] 2 mg PO HS 08/17/21 08/17/21 History Oxycodone HCl 5 mg PO Q8HP PRN 08/17/21 08/17/21 History Height: 1.55 m Weight: 88 kg Laboratory Results:: Laboratory Results - last 24 hr 08/20/21 06:20: WBC 6.1 D, RBC 3.24 L, Hgb 8.3 L, Hct 25.9 L, MCV 80.0 L, MCH 25.6 L, MCHC 32.0, RDW 17.5, Plt Count 287, MPV 8.8, Neut % (Auto) 65.0, Lymph % (Auto) 22.2, Daggett % (Auto) 6.4, Eos % (Auto) 5.2, Baso % (Auto) 1.2, Neut # (Auto) 4.0, Lymph # (Auto) 1.4, Daggett # (Auto) 0.4, Eos # (Auto) 0.3, Baso # (Auto) 0.1 08/20/21 06:20: Sodium 136, Potassium 3.8, Chloride 103, Carbon Dioxide 32 H, Anion Gap 4.8 L, BUN 16, Creatinine 0.80, Estimated Creat Clear 80, Estimated GFR 72, Est GFR ( Amer) 88, Glucose 95, Calcium 9.3 08/20/21 12:30: Vancomycin Trough 26.0 H Medical History: Reports:: Hyperlipidemia, Hypertension, MRSA Denies:: Cancer, Diabetes Mellitus Type 1, Diabetes Mellitus Type 2, Internal Pacemaker, Seizures Assessment and Plan (1) Infected hardware in right leg Status: Acute Category: Medical Code(s): T84.7XXA - Infection and inflammatory reaction due to other internal orthopedic prosthetic devices, implants and grafts, initial encounter (2) Essential hypertension Status: Chronic Category: Medical Code(s): I10 - Essential (primary) hy pertension (3) Anxiety Status: Chronic Category: Medical Code(s): F41.9 - Anxiety disorder, unspecified (4) Chronic pain Status: Chronic Category: Medical Code(s): G89.29 - Other chronic pain (5) MRSA (methicillin resistant staph aureus) culture positive Status: Acute Category: Medical Code(s): Z22.322 - Carrier or suspected carrier of Methicillin resistant Staphylococcus aureus (6) Cellulitis Status: Acute Qualifiers: Site of cellulitis: extremity Site of cellulitis of extremity: lower extremity Laterality: right Qualified Code(s): L03.115 - Cellulitis of right lower limb Category: Medical Code(s): L03.90 - Cellulitis, unspecified - Assessment and plan all Dx Assessment and Plan for all problems:: PATIENT'S VANCOMYCIN TROUGH LEVEL WAS 26.0 MCG/ML TODAY. RECOMMEND CHANGING VANCOMYCIN DOSING FROM 1750 MG Q12H TO 1500 MG Q24H. WILL HOLD NEXT DOSE TO 0900 ON 08/21/21.
--- NOTE | 2021-08-20 13:37 | HMH.DCSUM ---
General - General Admission date:: 08/17/21 Discharge date: 08/20/21 HPI HPI: Ms. Ferreira is a 61 y.o female with history of ankle fracture after she fell down some stairs and and fractured/dislocated her ankle in January 2021. She had surgery on February 17, 2021 at [facility] in [place]. She underwent open reduction internal fixation right ankle fracture by an outside provider, subsequently developed drainage and was treated for period of time with wound care. She recent presented to Ortho clinic at [facility] with purulent appearing drainage which was sent for culture, ultimately growing methicillin-resistant staph aureus. Decision made to remove hardware and pursue extended course of IV Abx. She was admtted today for removal of hardware. This afternoon hardware was explanted. The fracture sites appeared stable upon direct visualization and were stable to stress fluoroscopic examination per Ortho documentation. Medicine consulted to assist in co-management of chronic conditions, Abx management, and follow-up plans. On evaluation, she is s/p surgery. Pain prominent. Wound vac in place with sero-sanguinous drainage. Denies any CP, MARTINES, SOA, N/V/D, constipation, or fever. Hospital Course Hospital Course: Patient was admitted to orthopedics. PICC line was placed, vancomycin infusion well. Over the weekend patient did well and achieved goals of being afebrile, PT evaluated her and felt that she would do well with home health. This morning renal function has improved, vancomycin trough levels have been monitored. She has tolerated vancomycin dosage well. No pain from her incision site. Healing well with physical therapy. Plan will be to discharge home. She has follow-up arranged with orthopedics, her regular physician in [place] and with infectious disease in [place] for ongoing vancomycin monitoring. With a prescription for 6 weeks of vancomycin through home health services. Objective Vital signs: Temp Pulse Resp BP Pulse Ox 98.5 F 97 H 18 154/94 H 94 L 08/20/21 08:29 08/20/21 08:29 08/20/21 08:00 08/20/21 08:29 08/20/21 08:00 no acute distress - *Routine HEENT Exam Head: Present: normocephalic Eye: Present: EOMI, PERRL ENT: Present: mucous membranes moist - *Routine Neck Exam Present: supple - *Routine Respiratory Exam Present: CTA bilaterally - *Routine Cardiovascular Exam Present: RRR - *Routine Abdominal Exam Present: soft, normoactive bowel sounds. Absent: tenderness - *Routine Extremities Exam Absent: cyanosis, clubbing, edema Comments: Right ankle in splint and wrapped per orthopedics. - *Routine Skin Exam Present: warm. Absent: rash - Detailed Eye Exam Eyelids: Bilateral normal inspection Results Labs on day of discharge: Labs from last 24 hours 08/20/21 08/20/21 08/20/21 12:30 06:20 06:20 WBC 6.1 D RBC 3.24 L Hgb 8.3 L Hct 25.9 L MCV 80.0 L MCH 25.6 L MCHC 32.0 RDW 17.5 Plt Count 287 MPV 8.8 Neut % (Auto) 65.0 Lymph % (Auto) 22.2 Bullock % (Auto) 6.4 Eos % (Auto) 5.2 Baso % (Auto) 1.2 Neut # (Auto) 4.0 Lymph # (Auto) 1.4 Bullock # (Auto) 0.4 Eos # (Auto) 0.3 Baso # (Auto) 0.1 Sodium 136 Potassium 3.8 Chloride 103 Carbon Dioxide 32 H Anion Gap 4.8 L BUN 16 Creatinine 0.80 Estimated Creat Clear 80 Estimated GFR 72 Est GFR ( Amer) 88 Glucose 95 Calcium 9.3 Vancomycin Trough 26.0 H Preliminary micro results at discharge 08/17/21 12:10 Wound Culture - Preliminary Ankle,Right NO GROWTH AFTER 48 HOURS DS: Diagnosis - Discharge Diagnosis (1) Infected hardware in right leg Status: Acute (2) Essential hypertension Status: Chronic (3) Anxiety Status: Chronic (4) Chronic pain Status: Chronic (5) MRSA (methicillin resistant staph aureus) culture positive Status: Acute (6) Cellulitis Status: Acu
--- NOTE | 2021-08-20 14:06 | CARE MANAGER ---
Patient will require a wheel chair r/t inability to bear weight on right lower extremity.
--- NOTE | 2021-08-20 15:36 | PC.NURSE ---
at this time waiting on dr pulido to round on patient.
[2021-08-20 16:00] VITALS: BP 126/72; PULSE 94; RESP 16; TEMP 36.7; O2SAT 95
--- NOTE | 2021-08-20 16:33 | CARE MANAGER ---
Addendum entered by [facility] 08/23/21 09:33: This patient will discharge to [facility] level of care today. COVID swab collected today is negative. Addendum entered by [facility] 08/22/21 15:34: Per Zoë this patient has been approved for [place] tomorrow and will require an additional COVID swab. I will follow up with steph Camp and MD tomorrow morning. Addendum entered by [facility] 08/22/21 08:11: Per Zoë Devine precert is still pending at this time. Addendum entered by [facility] 08/21/21 13:35: Zoë Devine has stated that she can accept this patient pending prior authorization. I will continue to follow up with steph, and [facility]. Addendum entered by [facility] 08/21/21 10:42: Zoë Devine is at [facility] to evaluate this patient. Addendum entered by [facility] 08/21/21 08:55: Patient is agreeable to placement this AM. Patient information will be faxed to Zoë Devine: patient is agreeable. I will continue to follow up with steph and MD. Patient is medically stable for discharge at this time. Original Note: This CM has worked on preparing this patient for discharge today. Patient was offered home infusions as well as SNF, but declined both, stating that she would rather come here daily for her infusions. Patient now has infusions set up here daily along with q 3 day wound vac drsg changes. She now has [facility] transportation set up for the entirety of her infusions. She has transport scheduled for today, once Dr. Rollins comes to change drsg. Dr. Rollins has been notified that patient only has transportation until 1730 today, and he assures me that he will be here before 1700.
--- NOTE | 2021-08-20 18:02 | HMH.ORTHPN ---
Subjective Date: 08/20/21 Time: 18:02 Principal diagnosis: Right surgical site infection with suspected osteomyelitis. Interval history: She had been doing well but stumbled when she stood up to go to restroom this afternoon. She didn't fall but says she feels uncomfortable discharging home alone. PN: Obj Ex Vital signs: Temp Pulse Resp BP Pulse Ox 98.5 F 97 H 18 154/94 H 94 L 08/20/21 08:29 08/20/21 08:29 08/20/21 08:00 08/20/21 08:29 08/20/21 08:00 - Constitutional no acute distress - Routine HEENT Exam Head: Present: normocephalic, atraumatic - Routine Neck Exam Present: supple - Routine Respiratory Exam Absent: accessory muscle use - Routine Cardiovascular Exam Present: RRR - Routine Abdominal Exam Present: soft. Absent: distended - Detailed Lower Extremity Exam Hip: Right normal inspection (Right lower extremity wound vacuum-assisted closure device changed. She has lateral wound measuring 7 cm x 0.25 cm x 0.25 cm. She has a small previous sinus tract measuring 0.2 cm x 0.2 cm. Her medial wound measures 4 cm x 0.25 cm x 0.25 cm. There is minimal sanguinous drainage, no purulence or surrounding erythema. Sensation intact to DP/SP/tibial/sural/saphenous nerve distribution. Palpable DP/PT pulse. Grossly intact EHL, FHL, tibialis anterior, gastrocsoleus.) Progress Note: A&P (1) Infected hardware in right leg Status: Acute (2) Essential hypertension Status: Chronic (3) Anxiety Status: Chronic (4) Chronic pain Status: Chronic (5) MRSA (methicillin resistant staph aureus) culture positive Status: Acute (6) Cellulitis Status: Acute Assessment and Plan for All Diagnoses:: 61-year-old female status post right ankle debridement, irrigation, hardware removal, antibiotic cement injection with wound vacuum-assisted closure August 17, 2021. Cultures grew MRSA. PICC line placed. Anticipate outpatient vancomycin 15 mg/kg. I discussed this with Dr. Celso Carlisle who agreed to follow-up with her this week. Plan to return to clinic Friday for wound VAC change. Protected weightbearing in boot. Appreciate medical management per Dr. Almaguer / April. Whereas she previously wanted to be discharged home she's now considering rehab versus returning to her daughter's home in [place]. I think given her limited mobility and need for wound care, along with follow up in clinic this coming Friday and next, she would most likely benefit from staying in the area, discharging to rehab vs. SNF with planned followup Friday. Will follow.
--- NOTE | 2021-08-20 18:45 | PC.NURSE ---
Determined pt wasnt safe to go home alone this afternoon. Dr. Rollins came in and changed dsg - wound vac and cancelled d/ at this time.
[2021-08-20 20:00] VITALS: BP 153/80; PULSE 85; RESP 15; TEMP 36.5; O2SAT 92
[2021-08-21 05:00] VITALS: BMI 37.8
--- NOTE | 2021-08-21 06:21 | PC.NURSE ---
pt rested t/o shift, remains on room air, got up to BSC with assist, no complaints of pain this shift, wound vac remains in place
[2021-08-21 06:30] VITALS: BP 164/93; PULSE 85; RESP 16; TEMP 36.4; O2SAT 92
[2021-08-21 08:00] VITALS: BP 142/84; PULSE 81; RESP 16; TEMP 36.7; O2SAT 91
--- NOTE | 2021-08-21 10:24 | PC.NURSE ---
Pt refused PT @ this time.
--- NOTE | 2021-08-21 11:32 | HMH.ORTHPN ---
Subjective Date: 08/21/21 Time: 08:40 Principal diagnosis: Right surgical site infection with suspected osteomyelitis. Interval history: Patient is a 61-year-old female who underwent right ankle debridement, irrigation, hardware removal, and antibiotic cement injection performed by Dr. Rollins on 08/17/2021. Today she is postop day #4. This morning she is lying comfortably in bed. She states that she is having some pain in her right ankle as to be expected but that it is well controlled with as needed pain medication and rest. She says that she is eating and drinking well and denies any episodes of nausea or vomiting. She states that she has attempted to ambulate with the assistance of physical therapy, but states that it is painful to put weight on her right ankle. She denies any history of fevers, chills, rigors, or distal tingling/numbness. She denies any other symptoms or concerns at this time. PN: Obj Ex Vital signs: Temp Pulse Resp BP Pulse Ox 98.0 F 81 16 142/84 H 91 L 08/21/21 08:00 08/21/21 08:00 08/21/21 08:00 08/21/21 08:00 08/21/21 08:00 - Constitutional no acute distress, cooperative - Routine HEENT Exam Head: Present: normocephalic, atraumatic Eye: Present: EOMI, PERRL ENT: Present: mucous membranes moist - Routine Neck Exam Present: supple, full ROM, trachea midline. Absent: JVD, lymphadenopathy - Routine Respiratory Exam Absent: accessory muscle use, respiratory distress Comments: Symmetric chest movement, able to speak in complete sentences - Routine Cardiovascular Exam Present: RRR Comments: Normal peripheral pulses - Routine Abdominal Exam Present: soft. Absent: tenderness - Routine Extremities Exam Comments: Upon examination of the right ankle/foot: Dressings present are clean, dry, and intact. No evidence of drainage or bleeding noted. There is a wound VAC assisted closure device in place with good seal and scant amount of serosanguineous fluid output. Attempted movements of the right ankle are somewhat painful. Thigh and calf are soft and nontender; Homans' sign is negative. No clinical evidence of DVT or compartment syndrome noted. Distal neurovascular status is intact. Toes appear pink, warm, and well-perfused. Sensation to light touch is grossly intact. Patient is actively mobilizing the foot, ankle, and toes. - Routine Skin Exam Present: intact, warm, normal turgor. Absent: cyanosis, erythema, lesions, jaundice - Routine Neurological Exam Present: alert, oriented X3, CN II-XII intact, moving all extremities, normal tone, normal speech. Absent: sensory deficit, motor deficit, altered mental status - Routine Psychiatric Exam Present: normal affect, cooperative Progress Note: A&P (1) Infected hardware in right leg Status: Acute (2) Essential hypertension Status: Chronic (3) Anxiety Status: Chronic (4) Chronic pain Status: Chronic (5) MRSA (methicillin resistant staph aureus) culture positive Status: Acute (6) Cellulitis Status: Acute Assessment and Plan for All Diagnoses:: I have discussed the clinical findings and progress with the patient. Overall she is doing well from an orthopedic standpoint today and may be discharged when medically appropriate. Her wound cultures are positive for MRSA; PICC line has been placed with anticipated outpatient vancomycin 15 mg/kg. Dr. Rollins has discussed the patient with Dr. Celso Carlisle who has agreed to follow-up with the patient on an outpatient basis this week. She may mobilize weightbearing as tolerated on the right lower extremity in the cam boot. Continue rest, ice, elevation, and pain medication as needed. She has a follow-up appointment with Dr. Rollins this 08/24/2021 at 8:45 AM for wound inspection and wound VAC change. Case management team coordinating discharge planning; patient previously wanted to be discharged home, but now considering short-term rehabilitation
--- NOTE | 2021-08-21 12:57 | HMH.ACPN2 ---
Internal Medicine - PN: Subj *Date: 08/21/21 *Time: 12:57 Interval history: Unfortunately did not discharge yesterday due to increased need from therapy and inability to go home safely. Still having pain this morning in her leg. Afebrile. No nausea or vomiting. Stable on antibiotics. From an orthopedic standpoint, patient is stable for discharge when medically appropriate. Working on placement either with family or rehab at this time. Exam Vital signs and Labs for Last 24 Hours: Temp Pulse Resp BP Pulse Ox 98.0 F 81 16 142/84 H 91 L 08/21/21 08:00 08/21/21 08:00 08/21/21 08:00 08/21/21 08:00 08/21/21 08:00 Laboratory Results - last 24 hr 08/20/21 12:30: Vancomycin Trough 26.0 H I & O for Last 24 hours: Intake & Output 08/18/21 08/19/21 08/20/21 08/21/21 23:59 23:59 23:59 23:59 Intake Total 2227 / 2227 3868 / 3868 2320 / 2320 Output Total 850 / 1650 1400 / 2100 700 / 700 Balance 1377 / 577 2468 / 1768 1620 / 1620 Weight 88.225 kg 88 kg 88 kg 90.764 kg Microbiology Reports for the Last 24 Hours: Microbiology 08/17/21 12:10 Ankle,Right Gram Stain - Final 08/17/21 12:10 Ankle,Right Wound Culture - Preliminary NO GROWTH AFTER 72 HOURS - Constitutional no acute distress, obese - *Routine HEENT Exam Head: Present: normocephalic Eye: Present: EOMI, PERRL ENT: Present: mucous membranes moist - *Routine Neck Exam Present: supple. Absent: lymphadenopathy - *Routine Respiratory Exam Present: CTA bilaterally - *Routine Cardiovascular Exam Present: RRR - *Routine Abdominal Exam Present: soft, normoactive bowel sounds. Absent: tenderness - *Routine Extremities Exam Absent: cyanosis, clubbing, edema Comments: Neurovascularly intact distal to surgery in right foot. Mild tenderness in right lower leg. Dressing in place, wound VAC on. - *Routine Skin Exam Present: warm. Absent: rash - *Routine Neurological Exam Present: alert, oriented X3 Assessment and Plan (1) Infected hardware in right leg Status: Acute Category: Medical Code(s): T84.7XXA - Infection and inflammatory reaction due to other internal orthopedic prosthetic devices, implants and grafts, initial encounter (2) Essential hypertension Status: Chronic Category: Medical Code(s): I10 - Essential (primary) hypertension (3) Anxiety Status: Chronic Category: Medical Code(s): F41.9 - Anxiety disorder, unspecified (4) Chronic pain Status: Chronic Category: Medical Code(s): G89.29 - Other chronic pain (5) MRSA (methicillin resistant staph aureus) culture positive Status: Acute Category: Medical Code(s): Z22.322 - Carrier or suspected carrier of Methicillin resistant Staphylococcus aureus (6) Cellulitis Status: Acute Qualifiers: Site of cellulitis: extremity Site of cellulitis of extremity: lower extremity Laterality: right Qualified Code(s): L03.115 - Cellulitis of right lower limb Category: Medical Code(s): L03.90 - Cellulitis, unspecified - Assessment and plan all Dx Assessment and Plan for all problems:: 61-year-old female with MRSA infected hardware. Status post removal. Continue wound care per orthopedics. Continue antibiotics as ordered. This time working on placement versus discharge home. Patient otherwise hemodynamically stable. Full code Regular diet Dispo pending placement.
[2021-08-21 16:00] VITALS: BP 135/80; PULSE 82; RESP 16; TEMP 36.3; O2SAT 93
--- NOTE | 2021-08-21 18:03 | PC.NURSE ---
pt got up in chair at bed side with PT. pt has complained of pain X1 t/o shift. pt has slept most of shift, no complaints at this time, awaiting discharge plans.
[2021-08-21 20:00] VITALS: BP 161/84; PULSE 84; RESP 16; TEMP 36.6; O2SAT 91
[2021-08-22 04:00] VITALS: BP 131/81; PULSE 84; RESP 18; TEMP 36.7; O2SAT 91
--- NOTE | 2021-08-22 04:44 | PC.NURSE ---
No acute changes noted. Pt has rested well this shift. No complaints stated. DSG intact to RLE with Wound vac in place.
[2021-08-22 05:00] VITALS: BMI 37.8
[2021-08-22 08:00] VITALS: BP 135/81; PULSE 84; RESP 17; TEMP 36.7; O2SAT 93
[2021-08-22 08:34] LABS: Basophils # 0.1 K/mm3 (0-0.2); Basophils % 1.2 % (0.1-2.0); Eosinophils # 0.4 K/mm3 (0.0-0.4); Eosinophils % 6.8 % (0.1-12.0); Hematocrit 27.7 % (37.0-47.0); Hemoglobin 8.9 g/dL (12.2-16.2); Lymphocytes # 1.3 K/mm3 (0.7-4.5); Lymphocytes % 23.3 % (10-50); Mean Corpuscular Hemoglobin 25.7 pg (27.0-31.2); Mean Corpuscular Volume 80.4 fl (81-99); Mean Platelet Volume 9.1 fl (7.4-10.4); Monocytes # 0.4 K/mm3 (0.1-1.0); Monocytes % 6.4 % (1.7-9.3); Neutrophils # 3.6 K/mm3 (1.8-7.8); Neutrophils % 62.3 % (37.0-80.0); Platelet Count 341 K/mm3 (142-424); Red Blood Count 3.44 M/mm3 (4.20-5.40); Red Cell Distribution Width 17.8 % (11.5-17.5); White Blood Count 5.7 K/mm3 (4.8-10.8)
[2021-08-22 08:38] LABS: Chloride 103 mmol/L (98-107)
[2021-08-22 08:39] LABS: Potassium 3.7 mmoL/L (3.5-5.1); Sodium 137 mmol/L (136-145)
[2021-08-22 08:41] LABS: Blood Urea Nitrogen 13 mg/dl (7-17); Creatinine Clearance Estimated 82 mL/min (50-200); Estimated Glomerular Filt Rate 72 ml/min (>60); GFR (African American) 88 ML/MIN (>60)
[2021-08-22 08:42] LABS: Anion Gap 5.7 mEq/L (5-15); Calcium 9.7 mg/dl (8.4-10.2); Carbon Dioxide 32 mmol/L (22.0-30.0); Glucose 102 mg/dl (74-100)
[2021-08-22 11:55] LABS: Vancomycin,Trough 11.9 ug/mL (5.0-10.0)
--- NOTE | 2021-08-22 12:41 | DIET.NUTRFU ---
RD reviewed meal intake, refused multiple meals yesterday, upon vsiist she claims she is too tired when meals come. RD expressed the importance of eating each meal to get strong. Also agreed to start ensure with tray so she can at least get some nutrition if skips meals.
--- NOTE | 2021-08-22 13:01 | HMH.PHACONS ---
- Pharmacy Consult Date: 08/22/21 Time: 13:01 Referring provider: DR. GOVEA Reason for Consult:: VANCOMYCIN TROUGH LEVEL Allergies and ADEs:: Allergies Allergy/AdvReac Type Severity Reaction Status Date / Time No Known Allergies Allergy Verified 08/10/21 15:15 Home Medications:: Home Medications Medication Instructions Recorded Confirmed Type ALPRAZolam [Alprazolam 2mg Tab] 2 mg PO AM 07/19/21 08/17/21 History Cholecalciferol (Vitamin D3) 1,000 unit PO DAILY 07/19/21 08/14/21 History [Vitamin D3 1,000 Unit Cap] Cyanocobalamin (Vitamin B-12) 5,000 mcg PO DAILY 07/19/21 08/14/21 History [Vitamin B12 5mg Tab] amlodipine 5 mg tablet 5 mg PO DAILY tab 08/10/21 08/14/21 History escitalopram oxalate 10 mg tablet 10 mg PO DAILY tab 08/10/21 08/14/21 History fluticasone propionate 50 1 spray NS DAILY g 08/10/21 08/14/21 History mcg/actuation nasal spray,suspension ALPRAZolam [Alprazolam 2mg Tab] 1 mg PO 1300 08/17/21 08/17/21 History ALPRAZolam [Alprazolam 2mg Tab] 2 mg PO HS 08/17/21 08/17/21 History Oxycodone HCl 5 mg PO Q8HP PRN 08/17/21 08/17/21 History Oxycodone HCl [Oxycodone 5mg tab 5 mg PO Q4HP PRN #30 tab 08/20/21 Rx (IR)] Vancomycin/Water For Inj (Peg) 1.5 gm IV 0900 ml 08/20/21 Rx [Vancomycin 1.5gm/300mL (PEG) Premix] Height: 1.55 m Weight: 90.75 kg Laboratory Results:: Laboratory Results - last 24 hr 08/22/21 08:10: Sodium 137, Potassium 3.7, Chloride 103, Carbon Dioxide 32 H, Anion Gap 5.7, BUN 13, Creatinine 0.80, Estimated Creat Clear 82, Estimated GFR 72, Est GFR ( Amer) 88, Glucose 102 H, Calcium 9.7 08/22/21 08:10: Vancomycin Trough 11.9 H 08/22/21 08:10: WBC 5.7, RBC 3.44 L, Hgb 8.9 L, Hct 27.7 L, MCV 80.4 L, MCH 25.7 L, MCHC 32.0, RDW 17.8 H, Plt Count 341, MPV 9.1, Neut % (Auto) 62.3, Lymph % (Auto) 23.3, Stewart % (Auto) 6.4, Eos % (Auto) 6.8, Baso % (Auto) 1.2, Neut # (Auto) 3.6, Lymph # (Auto) 1.3, Stewart # (Auto) 0.4, Eos # (Auto) 0.4, Baso # (Auto) 0.1 Medical History: Reports:: Hyperlipidemia, Hypertension, MRSA Denies:: Cancer, Diabetes Mellitus Type 1, Diabetes Mellitus Type 2, Internal Pacemaker, Seizures Assessment and Plan (1) Infected hardware in right leg Status: Acute Category: Medical Code(s): T84.7XXA - Infection and inflammatory reaction due to other internal orthopedic prosthetic devices, implants and grafts, initial encounter (2) Essential hypertension Status: Chronic Category: Medical Code(s): I10 - Essential (primary) hypertension (3) Anxiety Status: Chronic Category: Medical Code(s): F41.9 - Anxiety disorder, unspecified (4) Chronic pain Status: Chronic Category: Medical Code(s): G89.29 - Other chronic pain (5) MRSA (methicillin resistant staph aureus) culture positive Status: Acute Category: Medical Code(s): Z22.322 - Carrier or suspected carrier of Methicillin resistant Staphylococcus aureus (6) Cellulitis Status: Acute Qualifiers: Site of cellulitis: extremity Site of cellulitis of extremity: lower extremity Laterality: right Qualified Code(s): L03.115 - Cellulitis of right lower limb Category: Medical Code(s): L03.90 - Cellulitis, unspecified - Assessment and plan all Dx Assessment and Plan for all problems:: PATIENT'S VANCOMYCIN TROUGH LEVEL WAS 11.9 MCG/ML THIS AM. RECOMMEND CONTINUING WITH CURRENT DOSE OF VANCOMYCIN 1500 MG Q24H AT THIS TIME.
--- NOTE | 2021-08-22 13:33 | HMH.ORTHPN ---
Subjective Date: 08/22/21 <Farzana Ogden - 08/22/21 13:33> Time: 13:10 <Farzana Ogden - 08/22/21 13:33> Principal diagnosis: Right surgical site infection with suspected osteomyelitis. <Farzana Ogden - 08/22/21 13:33> Interval history: Agree with plan as outlined above. Continue IV vancomycin, q72h VAC changes, follow up in clinic for wound check, follow up infectious disease, Dr. Celso Carlisle. <Kyle Rollins JR - 08/25/21 10:51> Patient is a 61-year-old female who underwent right ankle debridement, irrigation, hardware removal, and antibiotic cement injection performed by Dr. Rollins on 08/17/2021. Today she is postop day #5. This afternoon she is lying comfortably in bed. She continues to report right ankle pain but states it is well controlled with oral pain medication and rest. She denies any episodes of nausea or vomiting and is eating and drinking well. She states that she has ambulated very minimally. No history of fevers, chills, rigors, or distal tingling/numbness. She denies any other symptoms or concerns at this time. <Farzana Ogden - 08/22/21 13:35> PN: Obj Ex Vital signs: Temp Pulse Resp BP Pulse Ox 97.7 F 93 H 18 120/71 92 L 08/23/21 08:00 08/23/21 08:00 08/23/21 08:00 08/23/21 08:00 08/23/21 08:00 <Kyle Rollins JR - 08/25/21 10:52> Temp Pulse Resp BP Pulse Ox 98.0 F 84 17 135/81 93 L 08/22/21 08:00 08/22/21 08:00 08/22/21 08:00 08/22/21 08:00 08/22/21 08:00 <Farzana Ogden - 08/22/21 13:33> - Constitutional no acute distress, cooperative <Farzana Ogden - 08/22/21 13:35> - Routine HEENT Exam Head: Present: normocephalic, atraumatic <Farzana Ogden - 08/22/21 13:35> Eye: Present: EOMI, PERRL <Farzana Ogden 08/22/21 13:35> ENT: Present: mucous membranes moist <Farzana Ogden 08/22/21 13:35> - Routine Neck Exam Present: supple, full ROM, trachea midline. Absent: JVD, lymphadenopathy <Farzana Ogden 08/22/21 13:35> - Routine Respiratory Exam Absent: accessory muscle use, respiratory distress <Farzana Ogden 08/22/21 13:35> Comments: Symmetric chest movement, able to speak in complete sentences <Farzana Ogden 08/22/21 13:35> - Routine Cardiovascular Exam Present: RRR <Farzana Ogden 08/22/21 13:35> Comments: Normal peripheral pulses <Farzana Ogden 08/22/21 13:35> - Routine Abdominal Exam Present: soft. Absent: tenderness <Farzana Ogden 08/22/21 13:35> - Routine Extremities Exam Comments: Upon examination of the right ankle/foot: Dressings present are clean, dry, and intact. No evidence of drainage or bleeding noted. There is a wound VAC assisted closure device in place, no output at this time. Attempted movements of the right ankle are somewhat painful. Thigh and calf are soft and nontender; Homans' sign is negative. No clinical evidence of DVT or compartment syndrome noted. Distal neurovascular status is intact. Toes appear pink, warm, and well-perfused. Sensation to light touch is grossly intact. Patient is actively mobilizing the foot, ankle, and toes. <Farzana Ogden 08/22/21 14:21> - Routine Skin Exam Present: intact, warm, normal turgor. Absent: cyanosis, erythema, lesions, jaundice <Farzana Ogden 08/22/21 13:35> - Routine Neurological Exam Present: alert, oriented X3, CN II-XII intact, moving all extremities, normal tone, normal speech. Absent: sensory deficit, motor deficit, altered mental status <Farzana Ogden 08/22/21 13:35> - Routine Psychiatric Exam Present: normal affect, cooperative <Farzana Ogden 08/22/21 13:35> Progress Note: A&P (1) Infected hardware in right leg Status: Acute (2) Essential hypertension Status: Chronic (3) Anxiety Status: Chronic (4) Chronic pain Status: Chronic (5) MRSA (methicillin resistant staph aureus) culture positive Status: Acute (6) Cellulitis Status: Acute <Kyle Rollins
--- NOTE | 2021-08-22 14:33 | HMH.ACPN2 ---
Internal Medicine - PN: Subj *Date: 08/22/21 *Time: 09:00 Interval history: Stable overnight. No acute events. No fevers. Exam Vital signs and Labs for Last 24 Hours: Temp Pulse Resp BP Pulse Ox 98.0 F 84 17 135/81 93 L 08/22/21 08:00 08/22/21 08:00 08/22/21 08:00 08/22/21 08:00 08/22/21 08:00 Laboratory Results - last 24 hr 08/22/21 08:10: Sodium 137, Potassium 3.7, Chloride 103, Carbon Dioxide 32 H, Anion Gap 5.7, BUN 13, Creatinine 0.80, Estimated Creat Clear 82, Estimated GFR 72, Est GFR ( Amer) 88, Glucose 102 H, Calcium 9.7 08/22/21 08:10: Vancomycin Trough 11.9 H 08/22/21 08:10: WBC 5.7, RBC 3.44 L, Hgb 8.9 L, Hct 27.7 L, MCV 80.4 L, MCH 25.7 L, MCHC 32.0, RDW 17.8 H, Plt Count 341, MPV 9.1, Neut % (Auto) 62.3, Lymph % (Auto) 23.3, [place] % (Auto) 6.4, Eos % (Auto) 6.8, Baso % (Auto) 1.2, Neut # (Auto) 3.6, Lymph # (Auto) 1.3, [place] # (Auto) 0.4, Eos # (Auto) 0.4, Baso # (Auto) 0.1 I & O for Last 24 hours: Intake & Output 08/19/21 08/20/21 08/21/21 08/22/21 23:59 23:59 23:59 23:59 Intake Total 3868 / 3868 2320 / 2320 300 / 300 360 / 360 Output Total 1400 / 2100 700 / 700 750 / 750 900 / 900 Balance 2468 / 1768 1620 / 1620 -450 / -450 -540 / -540 Weight 88 kg 88 kg 90.764 kg 90.75 kg Microbiology Reports for the Last 24 Hours: Microbiology 08/17/21 12:10 Ankle,Right Gram Stain - Final 08/17/21 12:10 Ankle,Right Wound Culture - Preliminary NO GROWTH AFTER 4 DAYS Narrative: - Constitutional no acute distress, obese, in bedside chair - *Routine HEENT Exam Head: Present: normocephalic Eye: Present: EOMI, PERRL ENT: Present: mucous membranes moist - *Routine Neck Exam Present: supple. Absent: lymphadenopathy - *Routine Respiratory Exam Present: CTA bilaterally - *Routine Cardiovascular Exam Present: RRR - *Routine Abdominal Exam Present: soft, normoactive bowel sounds. Absent: tenderness - *Routine Extremities Exam Absent: cyanosis, clubbing, edema; Neurovascularly intact distal to surgery in right foot. Mild tenderness in right lower leg. Dressing in place, wound VAC on. - *Routine Skin Exam Present: warm. Absent: rash - *Routine Neurological Exam Present: alert, oriented X3 Assessment and Plan (1) Infected hardware in right leg Status: Acute Category: Medical Code(s): T84.7XXA - Infection and inflammatory reaction due to other internal orthopedic prosthetic devices, implants and grafts, initial encounter (2) Essential hypertension Status: Chronic Category: Medical Code(s): I10 - Essential (primary) hypertension (3) Anxiety Status: Chronic Category: Medical Code(s): F41.9 - Anxiety disorder, unspecified (4) Chronic pain Status: Chronic Category: Medical Code(s): G89.29 - Other chronic pain (5) MRSA (methicillin resistant staph aureus) culture positive Status: Acute Category: Medical Code(s): Z22.322 - Carrier or suspected carrier of Methicillin resistant Staphylococcus aureus (6) Cellulitis Status: Acute Qualifiers: Site of cellulitis: extremity Site of cellulitis of extremity: lower extremity Laterality: right Qualified Code(s): L03.115 - Cellulitis of right lower limb Category: Medical Code(s): L03.90 - Cellulitis, unspecified - Assessment and plan all Dx Assessment and Plan for all problems:: 61-year-old female with MRSA infected hardware. Status post removal. Continue wound care per orthopedics. Continue antibiotics as ordered. Case management working on placement. Patient otherwise hemodynamically stable. Full code Regular diet Dispo pending placement.
[2021-08-22 15:15] VITALS: BP 115/72; PULSE 80; RESP 18; TEMP 36.5; O2SAT 92
--- NOTE | 2021-08-22 16:23 | PC.NURSE ---
spoke to pt concerning multiple family members calling w/o having password and them being unable to get any information d/t this. Pt stated she would like to have a password of [employer] . This information has been written down on pts cardex and we have encouraged her to give this password to anyone she feels necessary to give it to.
--- NOTE | 2021-08-22 18:40 | PC.NURSE ---
pt has slept most of shift and has refused most of grooming/hygiene. pt got up to chair at bedside with PT after lunch and has reported pain X1. pt has had some confusion off and on throughout shift, will continue to monitor. pt is asleep in bed, call [place] and personal items within reach. cc, plan to dc pt to [facility] tomorrow.
[2021-08-22 20:00] VITALS: BP 131/73; PULSE 90; RESP 18; TEMP 36.4; O2SAT 93
[2021-08-23 03:58] VITALS: BP 135/79; PULSE 83; RESP 18; TEMP 36.6; O2SAT 95
[2021-08-23 05:00] VITALS: BMI 37.3
--- NOTE | 2021-08-23 05:13 | PC.NURSE ---
Pt has rested most of the shift. Pt c/o of pain in right foot x1, medicated per MAR with relief. Pt walked to bathroom x2 this shift. Pt tolerated well with boot on right foot and walked with walker with x2 standby assist. wound vac in place on right foot. Purewick in place draining clear, yellow urine. Pt remains on RA with O2 sats 93-95%.
--- NOTE | 2021-08-23 06:57 | HMH.DCSUM ---
General - General Admission date:: 08/17/21 Discharge date: 08/23/21 HPI HPI: Ms. Ferreira is a 61 y.o female with history of ankle fracture after she fell down some stairs and and fractured/dislocated her ankle in January 2021. She had surgery on February 17, 2021 at [facility] in [place]. She underwent open reduction internal fixation right ankle fracture by an outside provider, subsequently developed drainage and was treated for period of time with wound care. She recent presented to Ortho clinic at [facility] with purulent appearing drainage which was sent for culture, ultimately growing methicillin-resistant staph aureus. Decision made to remove hardware and pursue extended course of IV Abx. She was admtted today for removal of hardware. This afternoon hardware was explanted. The fracture sites appeared stable upon direct visualization and were stable to stress fluoroscopic examination per Ortho documentation. Medicine consulted to assist in co-management of chronic conditions, Abx management, and follow-up plans. On evaluation, she is s/p surgery. Pain prominent. Wound vac in place with sero-sanguinous drainage. Denies any CP, MARTINES, SOA, N/V/D, constipation, or fever. Hospital Course Hospital Course: 61-year-old female with MRSA infected hardware. Orthopedics for removal of hardware. PICC line was placed and bank infusions initiated. She did well after surgery but has more assistance than initially expected. Initial plan was to discharge home with family however the patient has demonstrated inability to ambulate independently or manage her medical needs at this time. Evaluated by PT and OT, would benefit from skilled rehab. Patient to be discharged today for rehab and continue nursing care to assist with IV antibiotics. She is tolerated daily Lantus well. Renal function has remained stable. Minimal pain from her incision site. She has follow-up arranged with orthopedics, and infectious disease in [place] for ongoing vancomycin monitoring. Will need to continue vancomycin for total of 6 weeks. Final dose on 09/27/21 Will need home health services after discharge from group home/meeting rehab goals. Continue aspirin 325 daily for DVT prophylaxis. Continue docusate for bowel regimen 5 days of oxycodone sent electronically to pharmacy. Recommend transitioning to Tylenol and ibuprofen thereafter. Objective Vital signs: Temp Pulse Resp BP Pulse Ox 97.8 F 83 18 135/79 95 08/23/21 03:58 08/23/21 03:58 08/23/21 03:58 08/23/21 03:58 08/23/21 03:58 Narrative: - Constitutional no acute distress, obese - *Routine HEENT Exam Head: Present: normocephalic Eye: Present: EOMI, PERRL ENT: Present: mucous membranes moist - *Routine Neck Exam Present: supple. Absent: lymphadenopathy - *Routine Respiratory Exam Present: CTA bilaterally - *Routine Cardiovascular Exam Present: RRR - *Routine Abdominal Exam Present: soft, normoactive bowel sounds. Absent: tenderness - *Routine Extremities Exam Absent: cyanosis, clubbing, edema; Neurovascularly intact distal to surgery in right foot. Mild tenderness in right lower leg. Dressing in place, wound VAC on. - *Routine Skin Exam Present: warm. Absent: rash - *Routine Neurological Exam Present: alert, oriented X3 Results Labs on day of discharge: Labs from last 24 hours 08/22/21 08/22/21 08/22/21 08:10 08:10 08:10 WBC 5.7 RBC 3.44 L Hgb 8.9 L Hct 27.7 L MCV 80.4 L MCH 25.7 L MCHC 32.0 RDW 17.8 H Plt Count 341 MPV 9.1 Neut % (Auto) 62.3 Lymph % (Auto) 23.3 [place] % (Auto) 6.4 Eos % (Auto) 6.8 Baso % (Auto) 1.2 Neut # (Auto) 3.6 Lymph # (Auto) 1.3 [place] # (Auto) 0.4 Eos # (Auto) 0.4 Baso # (Auto) 0.1 Sodium 137 Potassium 3.7 Chloride 103 Carbon Dioxide 32 H Anion Gap 5.7 BUN 13 Creatinine 0.80 Estimated Creat Clear 82 Estimated
[2021-08-23 08:00] VITALS: BP 120/71; PULSE 93; RESP 18; TEMP 36.5; O2SAT 92
[2021-08-23 08:08] LABS: Coronavirus 19, PCR Not Detected (NotDetected); Influenza A, PCR Not Detected (NotDetected); Influenza B, PCR Not Detected (NotDetected)
--- NOTE | 2021-08-23 09:27 | HMH.ORTHPN ---
Subjective Date: 08/23/21 <Farzana Ogden - 08/23/21 09:27> Time: 08:45 <Farzana Ogden - 08/23/21 09:27> Principal diagnosis: Right surgical site infection with suspected osteomyelitis. <Farzana Ogden - 08/23/21 09:27> Interval history: Agree with plan as outlined above. Continue IV vancomycin, q72h VAC changes, follow up in clinic for wound check, follow up infectious disease, Dr. Celso Carlisle. <Kyle Rollins JR - 08/25/21 10:51> Patient is a 61-year-old female who underwent right ankle debridement, irrigation, hardware removal, and antibiotic cement injection performed by Dr. Rollins on 08/17/2021. Today she is postop day #6. This morning she is sitting comfortably at the side of the bed. She continues to report right ankle pain but states it is well controlled with oral pain medication and rest. She denies any episodes of nausea or vomiting and is eating and drinking well. She states that she has been ambulating with the CAM boot and a walker. No history of fevers, chills, rigors, or distal tingling/numbness. She denies any other symptoms or concerns at this time. <Farzana Ogden - 08/23/21 09:28> PN: Obj Ex Vital signs: Temp Pulse Resp BP Pulse Ox 97.7 F 93 H 18 120/71 92 L 08/23/21 08:00 08/23/21 08:00 08/23/21 08:00 08/23/21 08:00 08/23/21 08:00 <Kyle Rollins JR - 08/25/21 10:53> Temp Pulse Resp BP Pulse Ox 97.8 F 83 18 135/79 95 08/23/21 03:58 08/23/21 03:58 08/23/21 03:58 08/23/21 03:58 08/23/21 03:58 <Farzana Ogden - 08/23/21 09:27> - Constitutional no acute distress, cooperative <Farzana Ogden - 08/23/21 09:31> - Routine HEENT Exam Head: Present: normocephalic, atraumatic <Farzana Ogden - 08/23/21 09:31> Eye: Present: EOMI, PERRL <Farzana Ogden 08/23/21 09:31> ENT: Present: mucous membranes moist <Farzana Ogden 08/23/21 09:31> - Routine Neck Exam Present: supple, full ROM, trachea midline. Absent: JVD, lymphadenopathy <Farzana Ogden 08/23/21 09:31> - Routine Respiratory Exam Absent: accessory muscle use, respiratory distress <Farzana Ogden 08/23/21 09:31> Comments: Symmetric chest movement, able to speak in complete sentences <Farzana Ogden 08/23/21 09:31> - Routine Cardiovascular Exam Present: RRR <Farzana Ogden 08/23/21 09:31> Comments: Normal peripheral pulses <Farzana Ogden 08/23/21 09:31> - Routine Abdominal Exam Present: soft. Absent: tenderness <Farzana Ogden 08/23/21 09:31> - Routine Extremities Exam Comments: Upon examination of the right ankle/foot: Dressings present are clean, dry, and intact. No evidence of drainage or bleeding noted. There is a wound VAC assisted closure device in place, no output at this time. Attempted movements of the right ankle are somewhat painful. Thigh and calf are soft and nontender; Homans' sign is negative. No clinical evidence of DVT or compartment syndrome noted. Distal neurovascular status is intact. Toes appear pink, warm, and well-perfused. Sensation to light touch is grossly intact. Patient is actively mobilizing the foot, ankle, and toes. <Farzana Ogden 08/23/21 09:29> - Routine Skin Exam Present: intact, warm, normal turgor. Absent: cyanosis, erythema, lesions, jaundice <Farzana Ogden 08/23/21 09:31> - Routine Neurological Exam Present: alert, oriented X3, CN II-XII intact, moving all extremities, normal tone, normal speech. Absent: sensory deficit, motor deficit, altered mental status <MelviFarzana 08/23/21 09:31> - Routine Psychiatric Exam Present: normal affect, cooperative <Ogden,Farzana 08/23/21 09:31> Progress Note: A&P (1) Infected hardware in right leg Status: Acute (2) Essential hypertension Status: Chronic (3) Anxiety Status: Chronic (4) Chronic pain Status: Chronic (5) MRSA (methicillin resistant staph aureus) culture positive Status: Acute (6) Cellulitis S
--- NOTE | 2021-08-23 10:18 | PC.NURSE ---
Administering vanc dose before dc'ing patient
--- NOTE | 2021-08-24 12:53 | CARE MANAGER ---
Spoke with [place] regarding discharge from hospital. They state she is quiet and doing ok. They deny questions or concerns. KIRK Rocha
== END 2021-08-23 12:11 | DRG 493 ==
LOC: 2ND 14:43
PROVIDERS: Internal Medicine Adolescent Medicine; Admitting Provider Orthopaedic Surgery; PCP Family Medicine; Visit Provider Orthopaedic Surgery
PROC: 0SPF04Z Removal of Internal Fixation Device from Right Ankle Joint, Open Approach (ICD-10-PCS; principal; 2021-08-17 10:45)
DX: T84.59XA Infection and inflammatory reaction due to other internal joint prosthesis, initial encounter (principal); L03.115 Cellulitis of right lower limb; E78.5 Hyperlipidemia, unspecified; I10 Essential (primary) hypertension; F41.9 Anxiety disorder, unspecified; Y83.1 Surgical operation with implant of artificial internal device as the cause of abnormal reaction of the patient, or of later complication, without mention of misadventure at the time of the procedure; B95.62 Methicillin resistant Staphylococcus aureus infection as the cause of diseases classified elsewhere
CPT/HCPCS: 20680; 36569; 36410; 36415; 71045; 73600; 73702; 76000; 80048; 80053; 80202; 82306; 82310; 83735; 85007; 85025; 87070; 87075; 87077; 87186; 87205; 88300; 96374; 97110; 97163; 97530; C1713; C1751; C9803; J2405; J3370; Q9967; U0003; U0005